=== PATIENT | female | born 1955 | race American Indian/Alaskan Native ===

== ENCOUNTER 2021-11-07 01:50 | Inpatient (IN) | payer MEDICAID ==
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
[2021-11-08] MEDS ORDERED: cloNIDine 0.1 MG TAB PO PRN (09:00)
[2021-11-08] MEDS ORDERED: NITROGLYCERIN 0.4 MG TAB SUBL SL SCH (09:00)
[2021-11-08] MEDS ORDERED: NON-FORMULARY EACH (Loratadine [Allergy Relief] 10 MG Tablet) PO SCH (10:00)
[2021-11-08] MEDS ORDERED: NON-FORMULARY EACH (Ziprasidone Hcl [Geodon] 80 MG Capsule) PO SCH (10:00)
[2021-11-08] MEDS: MAGNESIUM OXIDE 400 MG TAB PO SCH ×2 (10:16→21:45)
[2021-11-08] MEDS: FAMOTIDINE 20 MG TAB PO SCH ×2 (10:16→21:45)
[2021-11-08] MEDS: LOSARTAN 50 MG TAB PO SCH (10:17)
[2021-11-08] MEDS: CETIRIZINE 10 MG TAB PO SCH (10:24)
[2021-11-08] MEDS: ZIPRASIDONE 40 MG CAP PO SCH ×2 (10:24→21:45)
[2021-11-08] MEDS: METOPROLOL SUCCINATE XL 25 MG TAB PO SCH (10:30)
[2021-11-08] MEDS: LORazepam 0.5 MG TAB PO SCH ×2 (13:42→21:45)
[2021-11-08] MEDS: DIVALPROEX DR 250 MG TAB PO SCH ×2 (13:42→21:45)
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
[2021-11-08] MEDS: PRAVASTATIN 20 MG TAB PO SCH (21:45)
[2021-11-08] MEDS ORDERED: traZODone 100 MG TAB PO PRN (22:00)
[2021-11-08] MEDS: INSULIN LISPRO 100 UNIT/ML SUB-Q SCH (23:21)
[2021-11-09 05:54] LABS: Basophils % (Auto) 0.3 % (0.0-1.8); Eosinophils # (Auto) 0.1 K/mm3 (0.0-0.4); Eosinophils % (Auto) 1.9 % (0.0-4.3); Hematocrit 36.3 % (30.3-42.9); Hemoglobin 11.3 gm/dl (10.1-14.3); Lymphocytes # (Auto) 2.3 K/mm3 (1.2-5.4); Lymphocytes % (Auto) 42.9 % (13.4-35.0); Mean Corpuscular HGB Conc 31 % (30-34); Mean Corpuscular Volume 88 fl (79-97); Monocytes # (Auto) 0.6 K/mm3 (0.0-0.8); Monocytes % (Auto) 11.1 % (0.0-7.3); Platelet Count 231 K/mm3 (140-440); Red Blood Count 4.12 M/mm3 (3.65-5.03); Red Cell Distribution Width 14.5 % (13.2-15.2)
[2021-11-09 06:12] LABS: Alanine Aminotransferase 20 units/L (7-56); Albumin 3.3 g/dL (3.9-5); Blood Urea Nitrogen 19 mg/dL (7-17); Calcium 8.6 mg/dL (8.4-10.2); HDL Cholesterol 45 mg/dL (40-59); Hemolysis Index 2; LDL Cholesterol,Direct 101 mg/dL (50-130)
[2021-11-09 06:13] LABS: BUN/Creatinine Ratio 27
--- NOTE | 2021-11-09 10:27 | Progress Note ---
Subjective Date of service: 11/09/21 Subjective Comment: 11/09: The patient was seen this morning. She continues to present with delusions, she was pointing at a staff stating " that right there is trying to hurt me." She endorses having auditory and visual hallucinations " voices telling me to pee allover, I see dark hair." Increase Su Henley to 500mg BID. REVIEW OF SYSTEMS MENTAL STATUS EXAMINATION Diagnoses: Schizophrenia Treatment Plan: Patient admitted for inpatient psychiatric evaluation, medication adjustment and close monitoring The patient's behavior, mood, sleep and appetite will be closely monitored. Patient enrolled in individual and group therapeutic sessions and encouraged to attend. Patient provided with a safe and structured environment. Patient's physical health needs will be addressed by the Hospitalist. Hospitalist Consulted Labs including CBC, CMP, Lipid profile and Hemoglobin A1C levels ordered for baseline reference Social Assessment will be completed and the Conservation Or Heritage Architect will work with patient and family to ensure a suitable and safe disposition Medication adjustment will be made as clinically indicated Continue home meds Usual Wellness Gnosticist/Preservation: - Start Trazodone 50 mg po QHS & 50 mg po QHS PRN between 10 PM & 2 AM for insomnia - Start Melatonin 5 mg po QHS to promote circadian rhythm The patient agreed on the treatment plan, understood the risk, benefit, alternative treatment, potential consequence of no treatment, and gave informed consent. Estimated days: 7 Medications and Allergies Legal Status: Involuntary Medications and Allergies Medications and Allergies Allergies Allergy/AdvReac Type Severity Reaction Status Date / Time codeine Allergy Vomiting Verified 11/08/21 00:41 cholecalciferol (vitamin D3) AdvReac Unknown Verified 11/08/21 00:44 [From Vitamin D3] ciprofloxacin [From Cipro] AdvReac Unknown Verified 11/08/21 00:42 ergocalciferol (vitamin D2) AdvReac Unknown Verified 11/08/21 00:45 [From Vitamin D2] Home Medications Medication Instructions Recorded Confirmed Last Taken Type Divalproex [Su Ingram] 250 mg PO TID 11/08/21 11/08/21 Unknown History Famotidine [Acid-Pep] 20 mg PO BID 11/08/21 11/08/21 Unknown History LORazepam [Ativan] 0.5 mg PO TID 11/08/21 11/08/21 Unknown History Loratadine [Allergy Relief] 10 mg PO DAILY 11/08/21 11/08/21 Unknown History Losartan [Cozaar] 50 mg PO DAILY 11/08/21 11/08/21 Unknown History Magnesium Oxide 400 mg PO BID 11/08/21 11/08/21 Unknown History Metoprolol Succinate [Toprol Xl] 25 mg PO DAILY 11/08/21 11/08/21 Unknown History Nitroglycerin [Nitrostat] 0.4 mg SL PRN 11/08/21 11/08/21 Unknown History Pravastatin [Pravachol] 20 mg PO HS 11/08/21 11/08/21 Unknown History Trazodone HCl 100 mg PO PRN PRN 11/08/21 11/08/21 Unknown History Ziprasidone HCl [Geodon] 80 mg PO BID 11/08/21 11/08/21 Unknown History cloNIDine [Catapres] 0.1 mg PO PRN 11/08/21 11/08/21 Unknown History metFORMIN [Glucophage] 1,000 mg PO BID 11/08/21 11/08/21 Unknown History Active Meds: Active Medications Cetirizine HCl (Cetirizine 10 Mg Tab) 10 mg PO DAILY [facility] Last Admin: 11/08/21 10:24 Dose: 10 mg Clonidine HCl (Clonidine 0.1 Mg Tab) 0.1 mg PO DAILY PRN PRN Reason: SBP > /=160 Divalproex Sodium (Divalproex Dr 250 Mg Tab) 250 mg PO TID [facility] Last Admin: 11/08/21 21:45 Dose: 250 mg Famotidine (Famotidine 20 Mg Tab) 20 mg PO BID [facility] Last Admin: 11/08/21 21:45 Dose: 20 mg Insulin Human Lispro (Insulin Lispro 100 Unit/Ml) 0 unit SUB-Q [facility]; Protocol Last Admin: 11/08/21 23:21 Dose: 4 unit Lorazepam (Lorazepam 0.5 Mg Tab) 0.5 mg PO TID [facility] Last Admin: 11/08/21 21:45 Dose: 0.5 mg Losartan Potassium (Losartan 50 Mg Tab) 50 mg PO DAILY [facility] Last Admin: 11/08/21 10:17 Dose: 50 mg Magnesium Oxide (Magnesium Oxide 400 Mg Tab) 400 mg PO BID [facility] Last Admin: 11/08/21 21:45 Dose: 400 mg Metformin HCl (Metformin 500 Mg Tab) 1,000 mg PO BIDDIAB [facility] Metoprolol Succinate (Metoprolol Succinate Xl 25 Mg Tab) 25 mg PO DAILY [facility] Last Admin: 11/08/21 10:30 Dose: Not Given Nitroglycerin (Nitroglycerin 0.4 Mg Tab Subl) 0.4 mg SL PRN [facility] Pravastatin Sodium (Pravastatin 20 Mg Tab) 20 mg PO HS [facility] Last Admin: 11/08/21 21:45 Dose: 20 mg Trazodone HCl (Trazodone 100 Mg Tab) 100 mg PO QHS PRN PRN Reason: Insomnia Ziprasidone (Ziprasidone 40 Mg Cap) 80 mg PO BID [facility] Last Admin: 11/08/21 21:45 Dose: 80 mg Results - Results Labs/Vitals: Laboratory Last Values WBC 5.3 K/mm3 (4.5-11.0) 11/09/21 05:20 RBC 4.12 M/mm3 (3.65-5.03) 11/09/21 05:20 Hgb 11.3 gm/dl (10.1-14.3) 11/09/21 05:20 Hct 36.3 % (30.3-42.9) 11/09/21 05:20 MCV 88 fl (79-97) 11/09/21 05:20 MCH 27 pg (28-32) L 11/09/21 05:20 MCHC 31 % (30-34) 11/09/21 05:20 RDW 14.5 % (13.2-15.2) 11/09/21 05:20 Plt Count 231 K/mm3 (140-440) 11/09/21 05:20 Lymph % (Auto) 42.9 % (13.4-35.0) H 11/09/21 05:20 Fleming % (Auto) 11.1 % (0.0-7.3) H 11/09/21 05:20 Eos % (Auto) 1.9 % (0.0-4.3) 11/09/21 05:20 Baso % (Auto) 0.3 % (0.0-1.8) 11/09/21 05:20 Lymph # (Auto) 2.3 K/mm3 (1.2-5.4) 11/09/21 05:20 Fleming # (Auto) 0.6 K/mm3 (0.0-0.8) 11/09/21 05:20 Eos # (Auto) 0.1 K/mm3 (0.0-0.4) 11/09/21 05:20 Baso # (Auto) 0.0 K/mm3 (0.0-0.1) 11/09/21 05:20 Seg Neutrophils % 43.8 % (40.0-70.0) 11/09/21 05:20 Seg Neutrophils # 2.3 K/mm3 (1.8-7.7) 11/09/21 05:20 Sodium 138 mmol/L (137-145) 11/09/21 05:20 Potassium 4.4 mmol/L (3.6-5.0) 11/09/21 05:20 Chloride 103.0 mmol/L (98-107) 11/09/21 05:20 Carbon Dioxide 27 mmol/L (22-30) 11/09/21 05:20 Anion Gap 12 mmol/L 11/09/21 05:20 BUN 19 mg/dL (7-17) H 11/09/21 05:20 Creatinine 0.7 mg/dL (0.6-1.2) 11/09/21 05:20 Estimated GFR > 60 ml/min 11/09/21 05:20 BUN/Creatinine Ratio 27 % 11/09/21 05:20 Glucose 230 mg/dL (65-100) H 11/09/21 05:20 POC Glucose 273 mg/dL (70-105) H 11/08/21 20:11 Hemoglobin A1c 6.3 % (4-6) H 11/09/21 05:20 Calcium 8.6 mg/dL (8.4-10.2) 11/09/21 05:20 Magnesium 2.10 mg/dL (1.7-2.3) 11/09/21 05:20 Total Bilirubin 0.20 mg/dL (0.1-1.2) 11/09/21 05:20 AST 18 units/L (5-40) 11/09/21 05:20 ALT 20 units/L (7-56) 11/09/21 05:20 Alkaline Phosphatase 72 units/L (35-129) 11/09/21 05:20 Total Protein 6.5 g/dL (6.3-8.2) 11/09/21 05:20 Albumin 3.3 g/dL (3.9-5) L 11/09/21 05:20 Albumin/Globulin Ratio 1.0 % 11/09/21 05:20 Triglycerides 89 mg/dL (2-149) 11/09/21 05:20 Cholesterol 162 mg/dL (50-199) 11/09/21 05:20 LDL Cholesterol Direct 101 mg/dL (50-130) 11/09/21 05:20 HDL Cholesterol 45 mg/dL (40-59) 11/09/21 05:20 Cholesterol/HDL Ratio 3.60 % 11/09/21 05:20 TSH 1.290 mlU/mL (0.270-4.200) 11/09/21 05:20 Last Vital Signs Temp 97.6 F 11/08/21 22:00 Pulse 63 11/08/21 22:00 Resp 14 11/08/21 22:00 BP 115/74 11/08/21 22:00 Pulse Ox 95 11/08/21 22:00
[2021-11-09] MEDS: MAGNESIUM OXIDE 400 MG TAB PO SCH ×2 (10:28→21:02)
[2021-11-09] MEDS: ZIPRASIDONE 40 MG CAP PO SCH ×2 (10:28→21:02)
[2021-11-09] MEDS: LORazepam 0.5 MG TAB PO SCH ×3 (10:28→21:01)
[2021-11-09] MEDS: CETIRIZINE 10 MG TAB PO SCH (10:28)
[2021-11-09] MEDS: METOPROLOL SUCCINATE XL 25 MG TAB PO SCH (10:28)
[2021-11-09] MEDS: FAMOTIDINE 20 MG TAB PO SCH ×2 (10:28→21:01)
[2021-11-09] MEDS: metFORMIN 500 MG TAB PO SCH ×2 (10:29→16:35)
[2021-11-09] MEDS: LOSARTAN 50 MG TAB PO SCH (10:29)
[2021-11-09] MEDS ORDERED: ZIPRASIDONE MESYLATE 20 MG VIAL IM PRN (11:00)
[2021-11-09] MEDS: INSULIN LISPRO 100 UNIT/ML SUB-Q SCH ×4 (11:06→21:04)
[2021-11-09] MEDS: DIVALPROEX DR 500 MG TAB PO SCH ×2 (11:09→21:02)
[2021-11-09] MEDS: DIVALPROEX DR 250 MG TAB PO SCH (11:16)
--- NOTE | 2021-11-09 15:45 | Progress Note ---
<ERIN MARQUEZ - Last Filed: 11/09/21 15:46> Assessment and Plan - Patient Problems (1) Schizophrenia Current Visit: Yes Status: Acute Plan to address problem: Continue anti-psychotic Redirect patient (2) Noncompliance Current Visit: Yes Status: Acute Plan to address problem: Discussed medication compliance (3) Hypertension Current Visit: Yes Status: Acute Plan to address problem: Monitor blood pressure q shift resume home anti-hypertensive (4) Hyperlipidemia Current Visit: Yes Status: Acute Plan to address problem: continue statin History Interval history: Patient seen in the break room. Patient admits anxiety and and hallucinations. Patient advised to be compliant with her psych medication. Hospitalist Physical - Constitutional Vitals: Temp Pulse Resp BP Pulse Ox 97.9 F 96 H 16 133/81 98 11/09/21 10:00 11/09/21 10:29 11/09/21 06:24 11/09/21 10:29 11/09/21 06:24 General appearance: Present: no acute distress - Respiratory Respiratory: bilateral: CTA - Cardiovascular Rhythm: regular - Integumentary Integumentary: Present: warm - Allied Health Allied health notes reviewed: nursing Results - Labs CBC & Chem 7: 11/09/21 05:20 11/09/21 05:20 Labs: Laboratory Last Values WBC 5.3 K/mm3 (4.5-11.0) 11/09/21 05:20 RBC 4.12 M/mm3 (3.65-5.03) 11/09/21 05:20 Hgb 11.3 gm/dl (10.1-14.3) 11/09/21 05:20 Hct 36.3 % (30.3-42.9) 11/09/21 05:20 MCV 88 fl (79-97) 11/09/21 05:20 MCH 27 pg (28-32) L 11/09/21 05:20 MCHC 31 % (30-34) 11/09/21 05:20 RDW 14.5 % (13.2-15.2) 11/09/21 05:20 Plt Count 231 K/mm3 (140-440) 11/09/21 05:20 Lymph % (Auto) 42.9 % (13.4-35.0) H 11/09/21 05:20 [place] % (Auto) 11.1 % (0.0-7.3) H 11/09/21 05:20 Eos % (Auto) 1.9 % (0.0-4.3) 11/09/21 05:20 Baso % (Auto) 0.3 % (0.0-1.8) 11/09/21 05:20 Lymph # (Auto) 2.3 K/mm3 (1.2-5.4) 11/09/21 05:20 [place] # (Auto) 0.6 K/mm3 (0.0-0.8) 11/09/21 05:20 Eos # (Auto) 0.1 K/mm3 (0.0-0.4) 11/09/21 05:20 Baso # (Auto) 0.0 K/mm3 (0.0-0.1) 11/09/21 05:20 Seg Neutrophils % 43.8 % (40.0-70.0) 11/09/21 05:20 Seg Neutrophils # 2.3 K/mm3 (1.8-7.7) 11/09/21 05:20 Sodium 138 mmol/L (137-145) 11/09/21 05:20 Potassium 4.4 mmol/L (3.6-5.0) 11/09/21 05:20 Chloride 103.0 mmol/L (98-107) 11/09/21 05:20 Carbon Dioxide 27 mmol/L (22-30) 11/09/21 05:20 Anion Gap 12 mmol/L 11/09/21 05:20 BUN 19 mg/dL (7-17) H 11/09/21 05:20 Creatinine 0.7 mg/dL (0.6-1.2) 11/09/21 05:20 Estimated GFR > 60 ml/min 11/09/21 05:20 BUN/Creatinine Ratio 27 % 11/09/21 05:20 Glucose 230 mg/dL (65-100) H 11/09/21 05:20 POC Glucose 138 mg/dL (70-105) H 11/09/21 12:00 Hemoglobin A1c 6.3 % (4-6) H 11/09/21 05:20 Calcium 8.6 mg/dL (8.4-10.2) 11/09/21 05:20 Magnesium 2.10 mg/dL (1.7-2.3) 11/09/21 05:20 Total Bilirubin 0.20 mg/dL (0.1-1.2) 11/09/21 05:20 AST 18 units/L (5-40) 11/09/21 05:20 ALT 20 units/L (7-56) 11/09/21 05:20 Alkaline Phosphatase 72 units/L (35-129) 11/09/21 05:20 Total Protein 6.5 g/dL (6.3-8.2) 11/09/21 05:20 Albumin 3.3 g/dL (3.9-5) L 11/09/21 05:20 Albumin/Globulin Ratio 1.0 % 11/09/21 05:20 Triglycerides 89 mg/dL (2-149) 11/09/21 05:20 Cholesterol 162 mg/dL (50-199) 11/09/21 05:20 LDL Cholesterol Direct 101 mg/dL (50-130) 11/09/21 05:20 HDL Cholesterol 45 mg/dL (40-59) 11/09/21 05:20 Cholesterol/HDL Ratio 3.60 % 11/09/21 05:20 TSH 1.290 mlU/mL (0.270-4.200) 11/09/21 05:20 Garza/IV: Voiding Method Toilet Active Medications - Current Medications Current Medications: Generic Name Dose Route Start Last Admin Trade Name Freq PRN Reason Stop Dose Admin Cetirizine HCl 10 mg 11/08/21 10:00 11/09/21 10:28 Cetirizine 10 Mg Tab PO 10 mg DAILY CHRISTA Administration Clonidine HCl 0.1 mg 11/08/21 09:00 Clonidine 0.1 Mg Tab PO DAILY PRN SBP > /=160 Divalproex Sodium 500 mg 11/09/21 11:00 11/09/21 11:[address] 500 Mg Tab PO 500 mg BID CHRISTA Administration Famotidine 20 mg 11/08/21 10:00 11/09/21 10:28 Famotidine 20 Mg Tab PO 20 mg BID CHRISTA Administration Insulin Human Lispro 0 unit 11/08/21 23:30 11/09/21 13:32 Insulin Lispro 100 Unit/Ml SUB-Q Not Given ACHS CHRISTA Protocol Lorazepam 0.5 mg 11/08/21 14:00 11/09/21 13:37 Lorazepam 0.5 Mg Tab PO 0.5 mg TID CHRISTA Administration Losartan Potassium 50 mg 11/08/21 10:00 11/09/21 10:29 Losartan 50 Mg Tab PO 50 mg DAILY CHRISTA Administration Magnesium Oxide 400 mg 11/08/21 10:00 11/09/21 10:28 Magnesium Oxide 400 Mg Tab PO 400 mg BID CHRISTA Administration Metformin HCl 1,000 mg 11/09/21 08:00 11/09/21 10:29 Metformin 500 Mg Tab PO 1,000 mg BIDDIAB CHRISTA Administration Metoprolol Succinate 25 mg 11/08/21 10:00 11/09/21 10:28 Metoprolol Succinate Xl 25 Mg Tab PO 25 mg DAILY CHRISTA Administration Nitroglycerin 0.4 mg 11/08/21 09:00 Nitroglycerin 0.4 Mg Tab Subl SL PRN CHRISTA Pravastatin Sodium 20 mg 11/08/21 22:00 11/08/21 21:45 Pravastatin 20 Mg Tab PO 20 mg HS CHRISTA Administration Trazodone HCl 100 mg 11/08/21 22:00 Trazodone 100 Mg Tab PO QHS PRN Insomnia Ziprasidone 80 mg 11/08/21 10:00 11/09/21 10:28 Ziprasidone 40 Mg Cap PO 80 mg BID CHRISTA Administration Ziprasidone 20 mg 11/09/21 11:00 Ziprasidone Mesylate 20 Mg Vial IM Q6H PRN Agitation <ANGUS MANNING - Last Filed: 11/09/21 20:12> Assessment and Plan Assessment and plan: I saw and evaluated the patient. I agree with the findings and the plan of care as documented in the Nurse Practitioner's~note, with the following corrections and additions. Hospitalist Physical - Constitutional Vitals: Temp Pulse Resp BP Pulse Ox 97.9 F 96 H 16 133/81 98 11/09/21 10:00 11/09/21 10:29 11/09/21 06:24 11/09/21 10:29 11/09/21 06:24 Results - Labs CBC & Chem 7: 11/09/21 05:20 11/09/21 05:20 Labs: Laboratory Last Values WBC 5.3 K/mm3 (4.5-11.0) 11/09/21 05:20 RBC 4.12 M/mm3 (3.65-5.03) 11/09/21 05:20 Hgb 11.3 gm/dl (10.1-14.3) 11/09/21 05:20 Hct 36.3 % (30.3-42.9) 11/09/21 05:20 MCV 88 fl (79-97) 11/09/21 05:20 MCH 27 pg (28-32) L 11/09/21 05:20 MCHC 31 % (30-34) 11/09/21 05:20 RDW 14.5 % (13.2-15.2) 11/09/21 05:20 Plt Count 231 K/mm3 (140-440) 11/09/21 05:20 Lymph % (Auto) 42.9 % (13.4-35.0) H 11/09/21 05:20 [place] % (Auto) 11.1 % (0.0-7.3) H 11/09/21 05:20 Eos % (Auto) 1.9 % (0.0-4.3) 11/09/21 05:20 Baso % (Auto) 0.3 % (0.0-1.8) 11/09/21 05:20 Lymph # (Auto) 2.3 K/mm3 (1.2-5.4) 11/09/21 05:20 [place] # (Auto) 0.6 K/mm3 (0.0-0.8) 11/09/21 05:20 Eos # (Auto) 0.1 K/mm3 (0.0-0.4) 11/09/21 05:20 Baso # (Auto) 0.0 K/mm3 (0.0-0.1) 11/09/21 05:20 Seg Neutrophils % 43.8 % (40.0-70.0) 11/09/21 05:20 Seg Neutrophils # 2.3 K/mm3 (1.8-7.7) 11/09/21 05:20 Sodium 138 mmol/L (137-145) 11/09/21 05:20 Potassium 4.4 mmol/L (3.6-5.0) 11/09/21 05:20 Chloride 103.0 mmol/L (98-107) 11/09/21 05:20 Carbon Dioxide 27 mmol/L (22-30) 11/09/21 05:20 Anion Gap 12 mmol/L 11/09/21 05:20 BUN 19 mg/dL (7-17) H 11/09/21 05:20 Creatinine 0.7 mg/dL (0.6-1.2) 11/09/21 05:20 Estimated GFR > 60 ml/min 11/09/21 05:20 BUN/Creatinine Ratio 27 % 11/09/21 05:20 Glucose 230 mg/dL (65-100) H 11/09/21 05:20 POC Glucose 103 mg/dL (70-105) 11/09/21 20:04 Hemoglobin A1c 6.3 % (4-6) H 11/09/21 05:20 Calcium 8.6 mg/dL (8.4-10.2) 11/09/21 05:20 Magnesium 2.10 mg/dL (1.7-2.3) 11/09/21 05:20 Total Bilirubin 0.20 mg/dL (0.1-1.2) 11/09/21 05:20 AST 18 units/L (5-40) 11/09/21 05:20 ALT 20 units/L (7-56) 11/09/21 05:20 Alkaline Phosphatase 72 units/L (35-129) 11/09/21 05:20 Total Protein 6.5 g/dL (6.3-8.2) 11/09/21 05:20 Albumin 3.3 g/dL (3.9-5) L 11/09/21 05:20 Albumin/Globulin Ratio 1.0 % 11/09/21 05:20 Triglycerides 89 mg/dL (2-149) 11/09/21 05:20 Cholesterol 162 mg/dL (50-199) 11/09/21 05:20 LDL Cholesterol Direct 101 mg/dL (50-130) 11/09/21 05:20 HDL Cholesterol 45 mg/dL (40-59) 11/09/21 05:20 Cholesterol/HDL Ratio 3.60 % 11/09/21 05:20 TSH 1.290 mlU/mL (0.270-4.200) 11/09/21 05:20 Garza/IV: Voiding Method Toilet Active Medications - Current Medications Current Medications: Generic Name Dose Route Start Last Admin Trade Name Freq PRN Reason Stop Dose Admin Cetirizine HCl 10 mg 11/08/21 10:00 11/09/21 10:28 Cetirizine 10 Mg Tab PO 10 mg DAILY CHRISTA Administration Clonidine HCl 0.1 mg 11/08/21 09:00 Clonidine 0.1 Mg Tab PO DAILY PRN SBP > /=160 Divalproex Sodium 500 mg 11/09/21 11:00 11/09/21 11:[address] 500 Mg Tab PO 500 mg BID CHRISTA Administration Famotidine 20 mg 11/08/21 10:00 11/09/21 10:28 Famotidine 20 Mg Tab PO 20 mg BID CHRISTA Administration Insulin Human Lispro 0 unit 11/08/21 23:30 11/09/21 16:35 Insulin Lispro 100 Unit/Ml SUB-Q 2 unit ACHS CHRISTA Administration Protocol Lorazepam 0.5 mg 11/08/21 14:00 11/09/21 13:37 Lorazepam 0.5 Mg Tab PO 0.5 mg TID CHRISTA Administration Losartan Potassium 50 mg 11/08/21 10:00 11/09/21 10:29 Losartan 50 Mg Tab PO 50 mg DAILY CHRISTA Administration Magnesium Oxide 400 mg 11/08/21 10:00 11/09/21 10:28 Magnesium Oxide 400 Mg Tab PO 400 mg BID CHRISTA Administration Metformin HCl 1,000 mg 11/09/21 08:00 11/09/21 16:35 Metformin 500 Mg Tab PO 1,000 mg BIDDIAB CHRISTA Administration Metoprolol Succinate 25 mg 11/08/21 10:00 11/09/21 10:28 Metoprolol Succinate Xl 25 Mg Tab PO 25 mg DAILY CHRISTA Administration Nitroglycerin 0.4 mg 11/08/21 09:00 Nitroglycerin 0.4 Mg Tab Subl SL PRN CHRISTA Pravastatin Sodium 20 mg 11/08/21 22:00 11/08/21 21:45 Pravastatin 20 Mg Tab PO 20 mg HS CHRISTA Administration Trazodone HCl 100 mg 11/08/21 22:00 Trazodone 100 Mg Tab PO QHS PRN Insomnia Ziprasidone 80 mg 11/08/21 10:00 11/09/21 10:28 Ziprasidone 40 Mg Cap PO 80 mg BID CHRISTA Administration Ziprasidone 20 mg 11/09/21 11:00 Ziprasidone Mesylate 20 Mg Vial IM Q6H PRN Agitation
[2021-11-09] MEDS: PRAVASTATIN 20 MG TAB PO SCH (21:02)
--- NOTE | 2021-11-10 08:26 | Progress Note ---
<LENIN REEVES - Last Filed: 11/10/21 11:27> Assessment and Plan Total Time Spent with Patient (Minutes): 37 - Patient Problems (1) DM2 (diabetes mellitus, type 2) Current Visit: Yes Status: Acute Qualifiers: Diabetes mellitus [employer] insulin use: without jail use Plan to address problem: POC BG monitoring Continue home dose metformin On Consistent carbs (with low sodium)diet (2) Hypertension Current Visit: Yes Status: Acute Plan to address problem: Monitor BP per protocol On Losartan and metoprolol On Consistent carb with low sodium diet (3) Hyperlipidemia Current Visit: Yes Status: Acute Plan to address problem: Continue statin (4) Schizophrenia Current Visit: Yes Status: Acute Plan to address problem: Continue anti-psychotic meds mgmt per primary team History Interval history: 66 year old female with history of schizophrenia who was admitted for aggressive behavior. No overnight events reported. Pt is seen this morning in rec room sitting at table. Denies SI/HI, CP, SOB, MACKENZIE. She has no complaints at this time Hospitalist Physical - Constitutional Vitals: Temp Pulse Resp BP Pulse Ox 97.8 F 70 17 128/64 97 11/09/21 22:00 11/09/21 22:00 11/09/21 22:00 11/09/21 22:00 11/09/21 22:00 General appearance: Present: no acute distress - EENT ENT: hearing intact, clear oral mucosa, other (no dentition, not wearing dentures) - Neck Neck: Present: supple, normal ROM - Respiratory Respiratory effort: normal Respiratory: bilateral: CTA - Cardiovascular Rhythm: regular Heart Sounds: Present: S1 & S2. Absent: systolic murmur, diastolic murmur, rub, click - Extremities Extremities: pulses intact, No edema Peripheral Pulses: within normal limits - Abdominal General gastrointestinal: soft, non-tender, non-distended, normal bowel sounds - Integumentary Integumentary: Present: clear, warm, dry - Psychiatric Psychiatric: cooperative, other (calm ) - Neurologic Neurologic: CNII-XII intact Results - Labs CBC & Chem 7: 11/09/21 05:20 11/09/21 05:20 Labs: Laboratory Last Values WBC 5.3 K/mm3 (4.5-11.0) 11/09/21 05:20 RBC 4.12 M/mm3 (3.65-5.03) 11/09/21 05:20 Hgb 11.3 gm/dl (10.1-14.3) 11/09/21 05:20 Hct 36.3 % (30.3-42.9) 11/09/21 05:20 MCV 88 fl (79-97) 11/09/21 05:20 MCH 27 pg (28-32) L 11/09/21 05:20 MCHC 31 % (30-34) 11/09/21 05:20 RDW 14.5 % (13.2-15.2) 11/09/21 05:20 Plt Count 231 K/mm3 (140-440) 11/09/21 05:20 Lymph % (Auto) 42.9 % (13.4-35.0) H 11/09/21 05:20 [place] % (Auto) 11.1 % (0.0-7.3) H 11/09/21 05:20 Eos % (Auto) 1.9 % (0.0-4.3) 11/09/21 05:20 Baso % (Auto) 0.3 % (0.0-1.8) 11/09/21 05:20 Lymph # (Auto) 2.3 K/mm3 (1.2-5.4) 11/09/21 05:20 [place] # (Auto) 0.6 K/mm3 (0.0-0.8) 11/09/21 05:20 Eos # (Auto) 0.1 K/mm3 (0.0-0.4) 11/09/21 05:20 Baso # (Auto) 0.0 K/mm3 (0.0-0.1) 11/09/21 05:20 Seg Neutrophils % 43.8 % (40.0-70.0) 11/09/21 05:20 Seg Neutrophils # 2.3 K/mm3 (1.8-7.7) 11/09/21 05:20 Sodium 138 mmol/L (137-145) 11/09/21 05:20 Potassium 4.4 mmol/L (3.6-5.0) 11/09/21 05:20 Chloride 103.0 mmol/L (98-107) 11/09/21 05:20 Carbon Dioxide 27 mmol/L (22-30) 11/09/21 05:20 Anion Gap 12 mmol/L 11/09/21 05:20 BUN 19 mg/dL (7-17) H 11/09/21 05:20 Creatinine 0.7 mg/dL (0.6-1.2) 11/09/21 05:20 Estimated GFR > 60 ml/min 11/09/21 05:20 BUN/Creatinine Ratio 27 % 11/09/21 05:20 Glucose 230 mg/dL (65-100) H 11/09/21 05:20 POC Glucose 131 mg/dL (70-105) H 11/10/21 06:26 Hemoglobin A1c 6.3 % (4-6) H 11/09/21 05:20 Calcium 8.6 mg/dL (8.4-10.2) 11/09/21 05:20 Magnesium 2.10 mg/dL (1.7-2.3) 11/09/21 05:20 Total Bilirubin 0.20 mg/dL (0.1-1.2) 11/09/21 05:20 AST 18 units/L (5-40) 11/09/21 05:20 ALT 20 units/L (7-56) 11/09/21 05:20 Alkaline Phosphatase 72 units/L (35-129) 11/09/21 05:20 Total Protein 6.5 g/dL (6.3-8.2) 11/09/21 05:20 Albumin 3.3 g/dL (3.9-5) L 11/09/21 05:20 Albumin/Globulin Ratio 1.0 % 11/09/21 05:20 Triglycerides 89 mg/dL (2-149) 11/09/21 05:20 Cholesterol 162 mg/dL (50-199) 11/09/21 05:20 LDL Cholesterol Direct 101 mg/dL (50-130) 11/09/21 05:20 HDL Cholesterol 45 mg/dL (40-59) 11/09/21 05:20 Cholesterol/HDL Ratio 3.60 % 11/09/21 05:20 TSH 1.290 mlU/mL (0.270-4.200) 11/09/21 05:20 Garza/IV: Voiding Method Toilet Active Medications - Current Medications Current Medications: Generic Name Dose Route Start Last Admin Trade Name Freq PRN Reason Stop Dose Admin Cetirizine HCl 10 mg 11/08/21 10:00 11/09/21 10:28 Cetirizine 10 Mg Tab PO 10 mg DAILY CHRISTA Administration Clonidine HCl 0.1 mg 11/08/21 09:00 Clonidine 0.1 Mg Tab PO DAILY PRN SBP > /=160 Divalproex Sodium 500 mg 11/09/21 11:00 11/09/21 21:[address] 500 Mg Tab PO 500 mg BID CHRISTA Administration Famotidine 20 mg 11/08/21 10:00 11/09/21 21:01 Famotidine 20 Mg Tab PO 20 mg BID CHRISTA Administration Insulin Human Lispro 0 unit 11/08/21 23:30 11/09/21 21:04 Insulin Lispro 100 Unit/Ml SUB-Q Not Given ACHS [facility] Protocol Lorazepam 0.5 mg 11/08/21 14:00 11/09/21 21:01 Lorazepam 0.5 Mg Tab PO 0.5 mg TID CHRISTA Administration Losartan Potassium 50 mg 11/08/21 10:00 11/09/21 10:29 Losartan 50 Mg Tab PO 50 mg DAILY CHRISTA Administration Magnesium Oxide 400 mg 11/08/21 10:00 11/09/21 21:02 Magnesium Oxide 400 Mg Tab PO 400 mg BID CHRISTA Administration Metformin HCl 1,000 mg 11/09/21 08:00 11/09/21 16:35 Metformin 500 Mg Tab PO 1,000 mg BIDDIAB CHRISTA Administration Metoprolol Succinate 25 mg 11/08/21 10:00 11/09/21 10:28 Metoprolol Succinate Xl 25 Mg Tab PO 25 mg DAILY CHRISTA Administration Nitroglycerin 0.4 mg 11/08/21 09:00 Nitroglycerin 0.4 Mg Tab Subl SL PRN CHRISTA Pravastatin Sodium 20 mg 11/08/21 22:00 11/09/21 21:02 Pravastatin 20 Mg Tab PO 20 mg HS CHRISTA Administration Trazodone HCl 100 mg 11/08/21 22:00 Trazodone 100 Mg Tab PO QHS PRN Insomnia Ziprasidone 80 mg 11/08/21 10:00 11/09/21 21:02 Ziprasidone 40 Mg Cap PO 80 mg BID CHRISTA Administration Ziprasidone 20 mg 11/09/21 11:00 Ziprasidone Mesylate 20 Mg Vial IM Q6H PRN Agitation Nutrition/Malnutrition Assess - Malnutrition Assessment Minimum of two criteria: No <OKEH,ANGUS E - Last Filed: 11/10/21 16:36> Assessment and Plan Assessment and plan: I saw and evaluated the patient. I agree with the findings and the plan of care as documented in the Nurse Practitioner's~note, with the following corrections and additions. Hospitalist Physical - Constitutional Vitals: Temp Pulse Resp BP Pulse Ox 97.4 F L 60 16 134/70 97 11/10/21 08:06 11/10/21 08:06 11/10/21 08:06 11/10/21 08:06 11/10/21 08:06 Results - Labs CBC & Chem 7: 11/09/21 05:20 11/09/21 05:20 Labs: Laboratory Last Values WBC 5.3 K/mm3 (4.5-11.0) 11/09/21 05:20 RBC 4.12 M/mm3 (3.65-5.03) 11/09/21 05:20 Hgb 11.3 gm/dl (10.1-14.3) 11/09/21 05:20 Hct 36.3 % (30.3-42.9) 11/09/21 05:20 MCV 88 fl (79-97) 11/09/21 05:20 MCH 27 pg (28-32) L 11/09/21 05:20 MCHC 31 % (30-34) 11/09/21 05:20 RDW 14.5 % (13.2-15.2) 11/09/21 05:20 Plt Count 231 K/mm3 (140-440) 11/09/21 05:20 Lymph % (Auto) 42.9 % (13.4-35.0) H 11/09/21 05:20 [place] % (Auto) 11.1 % (0.0-7.3) H 11/09/21 05:20 Eos % (Auto) 1.9 % (0.0-4.3) 11/09/21 05:20 Baso % (Auto) 0.3 % (0.0-1.8) 11/09/21 05:20 Lymph # (Auto) 2.3 K/mm3 (1.2-5.4) 11/09/21 05:20 [place] # (Auto) 0.6 K/mm3 (0.0-0.8) 11/09/21 05:20 Eos # (Auto) 0.1 K/mm3 (0.0-0.4) 11/09/21 05:20 Baso # (Auto) 0.0 K/mm3 (0.0-0.1) 11/09/21 05:20 Seg Neutrophils % 43.8 % (40.0-70.0) 11/09/21 05:20 Seg Neutrophils # 2.3 K/mm3 (1.8-7.7) 11/09/21 05:20 Sodium 138 mmol/L (137-145) 11/09/21 05:20 Potassium 4.4 mmol/L (3.6-5.0) 11/09/21 05:20 Chloride 103.0 mmol/L (98-107) 11/09/21 05:20 Carbon Dioxide 27 mmol/L (22-30) 11/09/21 05:20 Anion Gap 12 mmol/L 11/09/21 05:20 BUN 19 mg/dL (7-17) H 11/09/21 05:20 Creatinine 0.7 mg/dL (0.6-1.2) 11/09/21 05:20 Estimated GFR > 60 ml/min 11/09/21 05:20 BUN/Creatinine Ratio 27 % 11/09/21 05:20 Glucose 230 mg/dL (65-100) H 11/09/21 05:20 POC Glucose 165 mg/dL (70-105) H 11/10/21 16:27 Hemoglobin A1c 6.3 % (4-6) H 11/09/21 05:20 Calcium 8.6 mg/dL (8.4-10.2) 11/09/21 05:20 Magnesium 2.10 mg/dL (1.7-2.3) 11/09/21 05:20 Total Bilirubin 0.20 mg/dL (0.1-1.2) 11/09/21 05:20 AST 18 units/L (5-40) 11/09/21 05:20 ALT 20 units/L (7-56) 11/09/21 05:20 Alkaline Phosphatase 72 units/L (35-129) 11/09/21 05:20 Total Protein 6.5 g/dL (6.3-8.2) 11/09/21 05:20 Albumin 3.3 g/dL (3.9-5) L 11/09/21 05:20 Albumin/Globulin Ratio 1.0 % 11/09/21 05:20 Triglycerides 89 mg/dL (2-149) 11/09/21 05:20 Cholesterol 162 mg/dL (50-199) 11/09/21 05:20 LDL Cholesterol Direct 101 mg/dL (50-130) 11/09/21 05:20 HDL Cholesterol 45 mg/dL (40-59) 11/09/21 05:20 Cholesterol/HDL Ratio 3.60 % 11/09/21 05:20 TSH 1.290 mlU/mL (0.270-4.200) 11/09/21 05:20 Garza/IV: Voiding Method Toilet Active Medications - Current Medications Current Medications: Generic Name Dose Route Start Last Admin Trade Name Freq PRN Reason Stop Dose Admin Cetirizine HCl 10 mg 11/08/21 10:00 11/10/21 09:55 Cetirizine 10 Mg Tab PO 10 mg DAILY CHRISTA Administration Clonidine HCl 0.1 mg 11/08/21 09:00 Clonidine 0.1 Mg Tab PO DAILY PRN SBP > /=160 Divalproex Sodium 500 mg 11/09/21 11:00 11/10/21 09:[address] 500 Mg Tab PO 500 mg BID CHRISTA Administration Famotidine 20 mg 11/08/21 10:00 11/10/21 09:55 Famotidine 20 Mg Tab PO 20 mg BID CHRISTA Administration Insulin Human Lispro 0 unit 11/08/21 23:30 11/10/21 11:41 Insulin Lispro 100 Unit/Ml SUB-Q 3 unit ACHS CHRISTA Administration Protocol Lorazepam 0.5 mg 11/08/21 14:00 11/10/21 13:04 Lorazepam 0.5 Mg Tab PO 0.5 mg TID CHRISTA Administration Losartan Potassium 50 mg 11/08/21 10:00 11/10/21 09:55 Losartan 50 Mg Tab PO 50 mg DAILY CHRISTA Administration Magnesium Oxide 400 mg 11/08/21 10:00 11/10/21 09:55 Magnesium Oxide 400 Mg Tab PO 400 mg BID CHRISTA Administration Metformin HCl 1,000 mg 11/09/21 08:00 11/10/21 10:05 Metformin 500 Mg Tab PO 1,000 mg BIDDIAB CHRISTA Administration Metoprolol Succinate 25 mg 11/08/21 10:00 11/10/21 09:55 Metoprolol Succinate Xl 25 Mg Tab PO 25 mg DAILY CHRISTA Administration Nitroglycerin 0.4 mg 11/08/21 09:00 Nitroglycerin 0.4 Mg Tab Subl SL PRN CHRISTA Pravastatin Sodium 20 mg 11/08/21 22:00 11/09/21 21:02 Pravastatin 20 Mg Tab PO 20 mg HS CHRISTA Administration Trazodone HCl 100 mg 11/08/21 22:00 Trazodone 100 Mg Tab PO QHS PRN Insomnia Ziprasidone 80 mg 11/08/21 10:00 11/10/21 09:55 Ziprasidone 40 Mg Cap PO 80 mg BID CHRISTA Administration Ziprasidone 20 mg 11/09/21 11:00 Ziprasidone Mesylate 20 Mg Vial IM Q6H PRN Agitation
--- NOTE | 2021-11-10 08:48 | Progress Note ---
Subjective Date of service: 11/10/21 Subjective Comment: 11/10: The patient was seen today. The patient was seen resting quietly in bed. Per nurse, the patient had an uneventful night. No changes made today. REVIEW OF SYSTEMS MENTAL STATUS EXAMINATION Diagnoses: Schizophrenia Treatment Plan: Patient admitted for inpatient psychiatric evaluation, medication adjustment and close monitoring The patient's behavior, mood, sleep and appetite will be closely monitored. Patient enrolled in individual and group therapeutic sessions and encouraged to attend. Patient provided with a safe and structured environment. Patient's physical health needs will be addressed by the Hospitalist. Hospitalist Consulted Labs including CBC, CMP, Lipid profile and Hemoglobin A1C levels ordered for baseline reference Social Assessment will be completed and the Turbine Operator will work with patient and family to ensure a suitable and safe disposition Medication adjustment will be made as clinically indicated Continue home meds Usual Wellness Gnosticist/Preservation: - Start Trazodone 50 mg po QHS & 50 mg po QHS PRN between 10 PM & 2 AM for insomnia - Start Melatonin 5 mg po QHS to promote circadian rhythm The patient agreed on the treatment plan, understood the risk, benefit, alternative treatment, potential consequence of no treatment, and gave informed consent. Estimated days: 7 Medications and Allergies Allergies Allergy/AdvReac Type Severity Reaction Status Date / Time codeine Allergy Vomiting Verified 11/08/21 00:41 cholecalciferol (vitamin D3) AdvReac Unknown Verified 11/08/21 00:44 [From Vitamin D3] ciprofloxacin [From Cipro] AdvReac Unknown Verified 11/08/21 00:42 ergocalciferol (vitamin D2) AdvReac Unknown Verified 11/08/21 00:45 [From Vitamin D2] Home Medications Medication Instructions Recorded Confirmed Last Taken Type Divalproex Dr [Depakote Dr] 250 mg PO TID 11/08/21 11/08/21 Unknown History Famotidine [Acid-Pep] 20 mg PO BID 11/08/21 11/08/21 Unknown History LORazepam [Ativan] 0.5 mg PO TID 11/08/21 11/08/21 Unknown History Loratadine [Allergy Relief] 10 mg PO DAILY 11/08/21 11/08/21 Unknown History Losartan [Cozaar] 50 mg PO DAILY 11/08/21 11/08/21 Unknown History Magnesium Oxide 400 mg PO BID 11/08/21 11/08/21 Unknown History Metoprolol Succinate [Toprol Xl] 25 mg PO DAILY 11/08/21 11/08/21 Unknown History Nitroglycerin [Nitrostat] 0.4 mg SL PRN 11/08/21 11/08/21 Unknown History Pravastatin [Pravachol] 20 mg PO HS 11/08/21 11/08/21 Unknown History Trazodone HCl 100 mg PO PRN PRN 11/08/21 11/08/21 Unknown History Ziprasidone HCl [Geodon] 80 mg PO BID 11/08/21 11/08/21 Unknown History cloNIDine [Catapres] 0.1 mg PO PRN 11/08/21 11/08/21 Unknown History metFORMIN [Glucophage] 1,000 mg PO BID 11/08/21 11/08/21 Unknown History Active Meds: Active Medications Cetirizine HCl (Cetirizine 10 Mg Tab) 10 mg PO DAILY [facility] Last Admin: 11/09/21 10:28 Dose: 10 mg Clonidine HCl (Clonidine 0.1 Mg Tab) 0.1 mg PO DAILY PRN PRN Reason: SBP > /=160 Divalproex Sodium (Divalproex Dr 500 Mg Tab) 500 mg PO BID [facility] Last Admin: 11/09/21 21:02 Dose: 500 mg Famotidine (Famotidine 20 Mg Tab) 20 mg PO BID [facility] Last Admin: 11/09/21 21:01 Dose: 20 mg Insulin Human Lispro (Insulin Lispro 100 Unit/Ml) 0 unit SUB-Q ACHS [facility]; Protocol Last Admin: 11/09/21 21:04 Dose: Not Given Lorazepam (Lorazepam 0.5 Mg Tab) 0.5 mg PO TID [facility] Last Admin: 11/09/21 21:01 Dose: 0.5 mg Losartan Potassium (Losartan 50 Mg Tab) 50 mg PO DAILY [facility] Last Admin: 11/09/21 10:29 Dose: 50 mg Magnesium Oxide (Magnesium Oxide 400 Mg Tab) 400 mg PO BID [facility] Last Admin: 11/09/21 21:02 Dose: 400 mg Metformin HCl (Metformin 500 Mg Tab) 1,000 mg PO BIDDIAB [facility] Last Admin: 11/09/21 16:35 Dose: 1,000 mg Metoprolol Succinate (Metoprolol Succinate Xl 25 Mg Tab) 25 mg PO DAILY [facility] Last Admin: 11/09/21 10:28 Dose: 25 mg Nitroglycerin (Nitroglycerin 0.4 Mg Tab Subl) 0.4 mg SL PRN CHRISTA Pravastatin Sodium (Pravastatin 20 Mg Tab) 20 mg PO HS [facility] Last Admin: 11/09/21 21:02 Dose: 20 mg Trazodone HCl (Trazodone 100 Mg Tab) 100 mg PO QHS PRN PRN Reason: Insomnia Ziprasidone (Ziprasidone 40 Mg Cap) 80 mg PO BID [facility] Last Admin: 11/09/21 21:02 Dose: 80 mg Ziprasidone (Ziprasidone Mesylate 20 Mg Vial) 20 mg IM Q6H PRN PRN Reason: Agitation Results - Results Labs/Vitals: Laboratory Last Values WBC 5.3 K/mm3 (4.5-11.0) 11/09/21 05:20 RBC 4.12 M/mm3 (3.65-5.03) 11/09/21 05:20 Hgb 11.3 gm/dl (10.1-14.3) 11/09/21 05:20 Hct 36.3 % (30.3-42.9) 11/09/21 05:20 MCV 88 fl (79-97) 11/09/21 05:20 MCH 27 pg (28-32) L 11/09/21 05:20 MCHC 31 % (30-34) 11/09/21 05:20 RDW 14.5 % (13.2-15.2) 11/09/21 05:20 Plt Count 231 K/mm3 (140-440) 11/09/21 05:20 Lymph % (Auto) 42.9 % (13.4-35.0) H 11/09/21 05:20 [place] % (Auto) 11.1 % (0.0-7.3) H 11/09/21 05:20 Eos % (Auto) 1.9 % (0.0-4.3) 11/09/21 05:20 Baso % (Auto) 0.3 % (0.0-1.8) 11/09/21 05:20 Lymph # (Auto) 2.3 K/mm3 (1.2-5.4) 11/09/21 05:20 [place] # (Auto) 0.6 K/mm3 (0.0-0.8) 11/09/21 05:20 Eos # (Auto) 0.1 K/mm3 (0.0-0.4) 11/09/21 05:20 Baso # (Auto) 0.0 K/mm3 (0.0-0.1) 11/09/21 05:20 Seg Neutrophils % 43.8 % (40.0-70.0) 11/09/21 05:20 Seg Neutrophils # 2.3 K/mm3 (1.8-7.7) 11/09/21 05:20 Sodium 138 mmol/L (137-145) 11/09/21 05:20 Potassium 4.4 mmol/L (3.6-5.0) 11/09/21 05:20 Chloride 103.0 mmol/L (98-107) 11/09/21 05:20 Carbon Dioxide 27 mmol/L (22-30) 11/09/21 05:20 Anion Gap 12 mmol/L 11/09/21 05:20 BUN 19 mg/dL (7-17) H 11/09/21 05:20 Creatinine 0.7 mg/dL (0.6-1.2) 11/09/21 05:20 Estimated GFR > 60 ml/min 11/09/21 05:20 BUN/Creatinine Ratio 27 % 11/09/21 05:20 Glucose 230 mg/dL (65-100) H 11/09/21 05:20 POC Glucose 131 mg/dL (70-105) H 11/10/21 06:26 Hemoglobin A1c 6.3 % (4-6) H 11/09/21 05:20 Calcium 8.6 mg/dL (8.4-10.2) 11/09/21 05:20 Magnesium 2.10 mg/dL (1.7-2.3) 11/09/21 05:20 Total Bilirubin 0.20 mg/dL (0.1-1.2) 11/09/21 05:20 AST 18 units/L (5-40) 11/09/21 05:20 ALT 20 units/L (7-56) 11/09/21 05:20 Alkaline Phosphatase 72 units/L (35-129) 11/09/21 05:20 Total Protein 6.5 g/dL (6.3-8.2) 11/09/21 05:20 Albumin 3.3 g/dL (3.9-5) L 11/09/21 05:20 Albumin/Globulin Ratio 1.0 % 11/09/21 05:20 Triglycerides 89 mg/dL (2-149) 11/09/21 05:20 Cholesterol 162 mg/dL (50-199) 11/09/21 05:20 LDL Cholesterol Direct 101 mg/dL (50-130) 11/09/21 05:20 HDL Cholesterol 45 mg/dL (40-59) 11/09/21 05:20 Cholesterol/HDL Ratio 3.60 % 11/09/21 05:20 TSH 1.290 mlU/mL (0.270-4.200) 11/09/21 05:20 Last Vital Signs Temp 97.8 F 11/09/21 22:00 Pulse 70 11/09/21 22:00 Resp 17 11/09/21 22:00 BP 128/64 11/09/21 22:00 Pulse Ox 97 11/09/21 22:00
[2021-11-10] MEDS: METOPROLOL SUCCINATE XL 25 MG TAB PO SCH (09:55)
[2021-11-10] MEDS: DIVALPROEX DR 500 MG TAB PO SCH ×2 (09:55→21:32)
[2021-11-10] MEDS: MAGNESIUM OXIDE 400 MG TAB PO SCH ×2 (09:55→21:33)
[2021-11-10] MEDS: CETIRIZINE 10 MG TAB PO SCH (09:55)
[2021-11-10] MEDS: FAMOTIDINE 20 MG TAB PO SCH ×2 (09:55→21:33)
[2021-11-10] MEDS: LOSARTAN 50 MG TAB PO SCH (09:55)
[2021-11-10] MEDS: ZIPRASIDONE 40 MG CAP PO SCH ×2 (09:55→21:32)
[2021-11-10] MEDS: LORazepam 0.5 MG TAB PO SCH ×3 (09:55→20:08)
[2021-11-10] MEDS: INSULIN LISPRO 100 UNIT/ML SUB-Q SCH ×4 (09:56→21:32)
[2021-11-10] MEDS: metFORMIN 500 MG TAB PO SCH ×2 (10:05→16:44)
[2021-11-10] MEDS: PRAVASTATIN 20 MG TAB PO SCH (21:34)
[2021-11-11] MEDS: INSULIN LISPRO 100 UNIT/ML SUB-Q SCH ×4 (07:55→21:19)
[2021-11-11] MEDS: LORazepam 0.5 MG TAB PO SCH ×3 (07:57→20:12)
[2021-11-11] MEDS: metFORMIN 500 MG TAB PO SCH ×2 (07:57→16:41)
[2021-11-11] MEDS: MAGNESIUM OXIDE 400 MG TAB PO SCH ×2 (09:09→21:19)
[2021-11-11] MEDS: DIVALPROEX DR 500 MG TAB PO SCH ×2 (09:09→21:18)
[2021-11-11] MEDS: ZIPRASIDONE 40 MG CAP PO SCH ×2 (09:09→21:19)
[2021-11-11] MEDS: FAMOTIDINE 20 MG TAB PO SCH ×2 (09:09→21:19)
[2021-11-11] MEDS: METOPROLOL SUCCINATE XL 25 MG TAB PO SCH (09:10)
[2021-11-11] MEDS: CETIRIZINE 10 MG TAB PO SCH (09:10)
[2021-11-11] MEDS: LOSARTAN 50 MG TAB PO SCH (09:11)
--- NOTE | 2021-11-11 10:07 | Progress Note ---
Subjective Date of service: 11/11/21 Principal diagnosis: schizophrenia Subjective Comment: The patient was seen today. She says she's doing okay. The patient says she slept well last nigh. She says she doesn't want to go back to her longterm because people hate her there and does things to her. The patient also hallucinates sometimes and says she sees "other people hands instead of her own." [place] continue to treat and monitor the patient. 11/10: The patient was seen today. The patient was seen resting quietly in bed. Per nurse, the patient had an uneventful night. No changes made today. REVIEW OF SYSTEMS Constitutional: Negative for weight loss ENT: Negative for stridor Respiratory: Negative for cough or hemoptysis All other systems reviewed and are negative MENTAL STATUS EXAMINATION General Appearance and Behavior: Age appropriate, wearing appropriate clothes, cooperative, polite with questioning, good eye contact Cooperation: cooperative Psychomotor Behavior: Psychomotor normal Mood: Okay Affect and affective range: congruent with stated mood Thought Process: Goal directed Thought Content: Reality oriented Speech: Normal volume, Regular rate and rhythm Suicidal Ideation: Denies Homicidal Ideation: Denies Hallucination: Sometimes Delusions: None elicited Impulse Control: Limited Insight and Judgment: Limited Memory: Intact Attention:attentive Orientation: Alert and oriented Assessment Schizophrenia Treatment Plan: Patient admitted for inpatient psychiatric evaluation, medication adjustment and close monitoring The patient's behavior, mood, sleep and appetite will be closely monitored. Patient enrolled in individual and group therapeutic sessions and encouraged to attend. Patient provided with a safe and structured environment. Patient's physical health needs will be addressed by the Hospitalist. Hospitalist Consulted Labs including CBC, CMP, Lipid profile and Hemoglobin A1C levels ordered for baseline reference Social Assessment will be completed and the Transmission Mechanic will work with patient and family to ensure a suitable and safe disposition Medication adjustment will be made as clinically indicated Continue home meds Usual Wellness Anabaptist/Preservation: - Start Trazodone 50 mg po QHS & 50 mg po QHS PRN between 10 PM & 2 AM for insomnia - Start Melatonin 5 mg po QHS to promote circadian rhythm The patient agreed on the treatment plan, understood the risk, benefit, alternative treatment, potential consequence of no treatment, and gave informed consent. Estimated days: [address] Silva Medications and Allergies Allergies Allergy/AdvReac Type Severity Reaction Status Date / Time codeine Allergy Vomiting Verified 11/08/21 00:41 cholecalciferol (vitamin D3) AdvReac Unknown Verified 11/08/21 00:44 [From Vitamin D3] ciprofloxacin [From Cipro] AdvReac Unknown Verified 11/08/21 00:42 ergocalciferol (vitamin D2) AdvReac Unknown Verified 11/08/21 00:45 [From Vitamin D2] Home Medications Medication Instructions Recorded Confirmed Last Taken Type Divalproex Dr [Depakote Dr] 250 mg PO TID 11/08/21 11/08/21 Unknown History Famotidine [Acid-Pep] 20 mg PO BID 11/08/21 11/08/21 Unknown History LORazepam [Ativan] 0.5 mg PO TID 11/08/21 11/08/21 Unknown History Loratadine [Allergy Relief] 10 mg PO DAILY 11/08/21 11/08/21 Unknown History Losartan [Cozaar] 50 mg PO DAILY 11/08/21 11/08/21 Unknown History Magnesium Oxide 400 mg PO BID 11/08/21 11/08/21 Unknown History Metoprolol Succinate [Toprol Xl] 25 mg PO DAILY 11/08/21 11/08/21 Unknown History Nitroglycerin [Nitrostat] 0.4 mg SL PRN 11/08/21 11/08/21 Unknown History Pravastatin [Pravachol] 20 mg PO HS 11/08/21 11/08/21 Unknown History Trazodone HCl 100 mg PO PRN PRN 11/08/21 11/08/21 Unknown History Ziprasidone HCl [Geodon] 80 mg PO BID 11/08/21 11/08/21 Unknown History cloNIDine [Catapres] 0.1 mg PO PRN 11/08/21 11/08/21 Unknown History metFORMIN [Glucophage] 1,000 mg PO BID 11/08/21 11/08/21 Unknown History Active Meds: Active Medications Cetirizine HCl (Cetirizine 10 Mg Tab) 10 mg PO DAILY [facility] Last Admin: 11/11/21 09:10 Dose: 10 mg Clonidine HCl (Clonidine 0.1 Mg Tab) 0.1 mg PO DAILY PRN PRN Reason: SBP > /=160 Divalproex Sodium (Divalproex Dr 500 Mg Tab) 500 mg PO BID [facility] Last Admin: 11/11/21 09:09 Dose: 500 mg Famotidine (Famotidine 20 Mg Tab) 20 mg PO BID [facility] Last Admin: 11/11/21 09:09 Dose: 20 mg Insulin Human Lispro (Insulin Lispro 100 Unit/Ml) 0 unit SUB-Q ACHS [facility]; Protocol Last Admin: 11/11/21 07:55 Dose: Not Given Lorazepam (Lorazepam 0.5 Mg Tab) 0.5 mg PO TID [facility] Last Admin: 11/11/21 07:57 Dose: 0.5 mg Losartan Potassium (Losartan 50 Mg Tab) 50 mg PO DAILY [facility] Last Admin: 11/11/21 09:11 Dose: Not Given Magnesium Oxide (Magnesium Oxide 400 Mg Tab) 400 mg PO BID [facility] Last Admin: 11/11/21 09:09 Dose: 400 mg Metformin HCl (Metformin 500 Mg Tab) 1,000 mg PO BIDDIAB [facility] Last Admin: 11/11/21 07:57 Dose: 1,000 mg Metoprolol Succinate (Metoprolol Succinate Xl 25 Mg Tab) 25 mg PO DAILY [facility] Last Admin: 11/11/21 09:10 Dose: 25 mg Nitroglycerin (Nitroglycerin 0.4 Mg Tab Subl) 0.4 mg SL PRN CHRISTA Pravastatin Sodium (Pravastatin 20 Mg Tab) 20 mg PO HS [facility] Last Admin: 11/10/21 21:34 Dose: 20 mg Trazodone HCl (Trazodone 100 Mg Tab) 100 mg PO QHS PRN PRN Reason: Insomnia Ziprasidone (Ziprasidone 40 Mg Cap) 80 mg PO BID [facility] Last Admin: 11/11/21 09:09 Dose: 80 mg Ziprasidone (Ziprasidone Mesylate 20 Mg Vial) 20 mg IM Q6H PRN PRN Reason: Agitation Results - Results Labs/Vitals: Laboratory Last Values WBC 5.3 K/mm3 (4.5-11.0) 11/09/21 05:20 RBC 4.12 M/mm3 (3.65-5.03) 11/09/21 05:20 Hgb 11.3 gm/dl (10.1-14.3) 11/09/21 05:20 Hct 36.3 % (30.3-42.9) 11/09/21 05:20 MCV 88 fl (79-97) 11/09/21 05:20 MCH 27 pg (28-32) L 11/09/21 05:20 MCHC 31 % (30-34) 11/09/21 05:20 RDW 14.5 % (13.2-15.2) 11/09/21 05:20 Plt Count 231 K/mm3 (140-440) 11/09/21 05:20 Lymph % (Auto) 42.9 % (13.4-35.0) H 11/09/21 05:20 [place] % (Auto) 11.1 % (0.0-7.3) H 11/09/21 05:20 Eos % (Auto) 1.9 % (0.0-4.3) 11/09/21 05:20 Baso % (Auto) 0.3 % (0.0-1.8) 11/09/21 05:20 Lymph # (Auto) 2.3 K/mm3 (1.2-5.4) 11/09/21 05:20 [place] # (Auto) 0.6 K/mm3 (0.0-0.8) 11/09/21 05:20 Eos # (Auto) 0.1 K/mm3 (0.0-0.4) 11/09/21 05:20 Baso # (Auto) 0.0 K/mm3 (0.0-0.1) 11/09/21 05:20 Seg Neutrophils % 43.8 % (40.0-70.0) 11/09/21 05:20 Seg Neutrophils # 2.3 K/mm3 (1.8-7.7) 11/09/21 05:20 Sodium 138 mmol/L (137-145) 11/09/21 05:20 Potassium 4.4 mmol/L (3.6-5.0) 11/09/21 05:20 Chloride 103.0 mmol/L (98-107) 11/09/21 05:20 Carbon Dioxide 27 mmol/L (22-30) 11/09/21 05:20 Anion Gap 12 mmol/L 11/09/21 05:20 BUN 19 mg/dL (7-17) H 11/09/21 05:20 Creatinine 0.7 mg/dL (0.6-1.2) 11/09/21 05:20 Estimated GFR > 60 ml/min 11/09/21 05:20 BUN/Creatinine Ratio 27 % 11/09/21 05:20 Glucose 230 mg/dL (65-100) H 11/09/21 05:20 POC Glucose 130 mg/dL (70-105) H 11/11/21 06:43 Hemoglobin A1c 6.3 % (4-6) H 11/09/21 05:20 Calcium 8.6 mg/dL (8.4-10.2) 11/09/21 05:20 Magnesium 2.10 mg/dL (1.7-2.3) 11/09/21 05:20 Total Bilirubin 0.20 mg/dL (0.1-1.2) 11/09/21 05:20 AST 18 units/L (5-40) 11/09/21 05:20 ALT 20 units/L (7-56) 11/09/21 05:20 Alkaline Phosphatase 72 units/L (35-129) 11/09/21 05:20 Total Protein 6.5 g/dL (6.3-8.2) 11/09/21 05:20 Albumin 3.3 g/dL (3.9-5) L 11/09/21 05:20 Albumin/Globulin Ratio 1.0 % 11/09/21 05:20 Triglycerides 89 mg/dL (2-149) 11/09/21 05:20 Cholesterol 162 mg/dL (50-199) 11/09/21 05:20 LDL Cholesterol Direct 101 mg/dL (50-130) 11/09/21 05:20 HDL Cholesterol 45 mg/dL (40-59) 11/09/21 05:20 Cholesterol/HDL Ratio 3.60 % 11/09/21 05:20 TSH 1.290 mlU/mL (0.270-4.200) 11/09/21 05:20 Last Vital Signs Temp 98.1 F 11/11/21 09:04 Pulse 81 11/11/21 09:10 Resp 16 11/11/21 09:04 BP 117/68 11/11/21 09:11 Pulse Ox 96 11/11/21 09:04
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
[2021-11-11] MEDS: PRAVASTATIN 20 MG TAB PO SCH (21:19)
[2021-11-12] MEDS: INSULIN LISPRO 100 UNIT/ML SUB-Q SCH ×4 (07:30→21:06)
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
[2021-11-12] MEDS: LORazepam 0.5 MG TAB PO SCH ×3 (08:46→20:40)
[2021-11-12] MEDS: metFORMIN 500 MG TAB PO SCH ×2 (08:47→16:24)
[2021-11-12] MEDS: FAMOTIDINE 20 MG TAB PO SCH ×2 (09:03→21:05)
[2021-11-12] MEDS: DIVALPROEX DR 500 MG TAB PO SCH ×2 (09:03→21:05)
[2021-11-12] MEDS: CETIRIZINE 10 MG TAB PO SCH (09:03)
[2021-11-12] MEDS: ZIPRASIDONE 40 MG CAP PO SCH ×2 (09:03→21:05)
[2021-11-12] MEDS: MAGNESIUM OXIDE 400 MG TAB PO SCH ×2 (09:03→21:05)
[2021-11-12] MEDS: LOSARTAN 50 MG TAB PO SCH (09:04)
[2021-11-12] MEDS: METOPROLOL SUCCINATE XL 25 MG TAB PO SCH (09:04)
--- NOTE | 2021-11-12 09:35 | Progress Note ---
Assessment and Plan Assessment and plan: Schizophrenia -Continue anti-psychotic -Redirect patient Hypertension -Monitor blood pressure q shift -On home antihypertensive meds Hyperlipidemia -On statin DM2 -controlled -A1c 6.4 -POC BG monitoring -Continue Metformin -On Consistent Carbs diet - Patient Problems (1) DM2 (diabetes mellitus, type 2) Current Visit: Yes Status: Acute Qualifiers: Diabetes mellitus joint terminal attack controller insulin use: without joint terminal attack controller use (2) Hypertension Current Visit: Yes Status: Acute (3) Hyperlipidemia Current Visit: Yes Status: Acute (4) Schizophrenia Current Visit: Yes Status: Acute History Interval history: 66 year old female with history of schizophrenia who was admitted for aggressive behavior. 11/12: Pt is seen sitting at table eating breakfast. She is looking forward to going home. Continues to deny SI/HI. No overnight events reported. 11/11: Pt is seen this morning in rec room . Denies SI/HI, CP, SOB, MACKENZIE. She has no complaints at this time. No overnight events reported. Hospitalist Physical - Physical exam Narrative exam: General appearance: Present: no acute distress - EENT ENT: hearing intact, clear oral mucosa, other (no dentition, not wearing dentures) - Neck Neck: Present: supple, normal ROM - Respiratory Respiratory effort: normal Respiratory: bilateral: CTA - Cardiovascular Rhythm: regular Heart Sounds: Present: S1 & S2. Absent: systolic murmur, diastolic murmur, rub, click - Extremities Extremities: pulses intact, No edema Peripheral Pulses: within normal limits - Abdominal General gastrointestinal: soft, non-tender, non-distended, normal bowel sounds - Integumentary Integumentary: Present: clear, warm, dry - Musculoskeletal Musculoskeletal: left sided residual weakness, no ataxia - Psychiatric Psychiatric: cooperative, other (calm ) - Neurologic Neurologic: CNII-XII intact - Constitutional Vitals: Temp Pulse Resp BP Pulse Ox 97.7 F 86 16 91/67 95 11/11/21 19:09 11/12/21 09:04 11/11/21 19:09 11/12/21 09:04 11/11/21 19:11 General appearance: Present: no acute distress Results - Labs CBC & Chem 7: 11/09/21 05:20 11/09/21 05:20 Labs: Laboratory Last Values WBC 5.3 K/mm3 (4.5-11.0) 11/09/21 05:20 RBC 4.12 M/mm3 (3.65-5.03) 11/09/21 05:20 Hgb 11.3 gm/dl (10.1-14.3) 11/09/21 05:20 Hct 36.3 % (30.3-42.9) 11/09/21 05:20 MCV 88 fl (79-97) 11/09/21 05:20 MCH 27 pg (28-32) L 11/09/21 05:20 MCHC 31 % (30-34) 11/09/21 05:20 RDW 14.5 % (13.2-15.2) 11/09/21 05:20 Plt Count 231 K/mm3 (140-440) 11/09/21 05:20 Lymph % (Auto) 42.9 % (13.4-35.0) H 11/09/21 05:20 Cross % (Auto) 11.1 % (0.0-7.3) H 11/09/21 05:20 Eos % (Auto) 1.9 % (0.0-4.3) 11/09/21 05:20 Baso % (Auto) 0.3 % (0.0-1.8) 11/09/21 05:20 Lymph # (Auto) 2.3 K/mm3 (1.2-5.4) 11/09/21 05:20 Cross # (Auto) 0.6 K/mm3 (0.0-0.8) 11/09/21 05:20 Eos # (Auto) 0.1 K/mm3 (0.0-0.4) 11/09/21 05:20 Baso # (Auto) 0.0 K/mm3 (0.0-0.1) 11/09/21 05:20 Seg Neutrophils % 43.8 % (40.0-70.0) 11/09/21 05:20 Seg Neutrophils # 2.3 K/mm3 (1.8-7.7) 11/09/21 05:20 Sodium 138 mmol/L (137-145) 11/09/21 05:20 Potassium 4.4 mmol/L (3.6-5.0) 11/09/21 05:20 Chloride 103.0 mmol/L (98-107) 11/09/21 05:20 Carbon Dioxide 27 mmol/L (22-30) 11/09/21 05:20 Anion Gap 12 mmol/L 11/09/21 05:20 BUN 19 mg/dL (7-17) H 11/09/21 05:20 Creatinine 0.7 mg/dL (0.6-1.2) 11/09/21 05:20 Estimated GFR > 60 ml/min 11/09/21 05:20 BUN/Creatinine Ratio 27 % 11/09/21 05:20 Glucose 230 mg/dL (65-100) H 11/09/21 05:20 POC Glucose 132 mg/dL (70-105) H 11/12/21 07:51 Hemoglobin A1c 6.3 % (4-6) H 11/09/21 05:20 Calcium 8.6 mg/dL (8.4-10.2) 11/09/21 05:20 Magnesium 2.10 mg/dL (1.7-2.3) 11/09/21 05:20 Total Bilirubin 0.20 mg/dL (0.1-1.2) 11/09/21 05:20 AST 18 units/L (5-40) 11/09/21 05:20 ALT 20 units/L (7-56) 11/09/21 05:20 Alkaline Phosphatase 72 units/L (35-129) 11/09/21 05:20 Total Protein 6.5 g/dL (6.3-8.2) 11/09/21 05:20 Albumin 3.3 g/dL (3.9-5) L 11/09/21 05:20 Albumin/Globulin Ratio 1.0 % 11/09/21 05:20 Triglycerides 89 mg/dL (2-149) 11/09/21 05:20 Cholesterol 162 mg/dL (50-199) 11/09/21 05:20 LDL Cholesterol Direct 101 mg/dL (50-130) 11/09/21 05:20 HDL Cholesterol 45 mg/dL (40-59) 11/09/21 05:20 Cholesterol/HDL Ratio 3.60 % 11/09/21 05:20 TSH 1.290 mlU/mL (0.270-4.200) 11/09/21 05:20 Garza/IV: Voiding Method Toilet Active Medications - Current Medications Current Medications: Generic Name Dose Route Start Last Admin Trade Name Freq PRN Reason Stop Dose Admin Cetirizine HCl 10 mg 11/08/21 10:00 11/12/21 09:03 Cetirizine 10 Mg Tab PO 10 mg DAILY [facility]STA Administration Clonidine HCl 0.1 mg 11/08/21 09:00 Clonidine 0.1 Mg Tab PO DAILY PRN SBP > /=160 Divalproex Sodium 500 mg 11/09/21 11:00 11/12/21 09:[address] 500 Mg Tab PO 500 mg BID [facility]STA Administration Famotidine 20 mg 11/08/21 10:00 11/12/21 09:03 Famotidine 20 Mg Tab PO 20 mg BID [facility]RISTA Administration Insulin Human Lispro 0 unit 11/08/21 23:30 11/12/21 07:30 Insulin Lispro 100 Unit/Ml SUB-Q Not Given ACHS [facility] Protocol Lorazepam 0.5 mg 11/08/21 14:00 11/12/21 08:46 Lorazepam 0.5 Mg Tab PO 0.5 mg TID [facility]STA Administration Losartan Potassium 50 mg 11/08/21 10:00 11/12/21 09:04 Losartan 50 Mg Tab PO Not Given DAILY [facility] Magnesium Oxide 400 mg 11/08/21 10:00 11/12/21 09:03 Magnesium Oxide 400 Mg Tab PO 400 mg BID [facility]STA Administration Metformin HCl 1,000 mg 11/09/21 08:00 11/12/21 08:47 Metformin 500 Mg Tab PO 1,000 mg BIDDIAB [facility] Administration Metoprolol Succinate 25 mg 11/08/21 10:00 11/12/21 09:04 Metoprolol Succinate Xl 25 Mg Tab PO Not Given DAILY [facility] Nitroglycerin 0.4 mg 11/08/21 09:00 Nitroglycerin 0.4 Mg Tab Subl SL PRN [facility]STA Pravastatin Sodium 20 mg 11/08/21 22:00 11/11/21 21:19 Pravastatin 20 Mg Tab PO 20 mg HS [facility] Administration Trazodone HCl 100 mg 11/08/21 22:00 Trazodone 100 Mg Tab PO QHS PRN Insomnia Ziprasidone 80 mg 11/08/21 10:00 11/12/21 09:03 Ziprasidone 40 Mg Cap PO 80 mg BID [facility]STA Administration Ziprasidone 20 mg 11/09/21 11:00 Ziprasidone Mesylate 20 Mg Vial IM Q6H PRN Agitation
[2021-11-12] MEDS: PRAVASTATIN 20 MG TAB PO SCH (21:05)
[2021-11-13] MEDS: INSULIN LISPRO 100 UNIT/ML SUB-Q SCH ×4 (07:30→21:17)
[2021-11-13] MEDS: LORazepam 0.5 MG TAB PO SCH ×3 (08:16→20:50)
[2021-11-13] MEDS: metFORMIN 500 MG TAB PO SCH ×2 (08:18→16:32)
--- NOTE | 2021-11-13 08:19 | Progress Note ---
Subjective Date of service: 11/13/21 Principal diagnosis: schizophrenia Subjective Comment: The patient was seen today. She says she's a little sleepy, but feels okay. She denies SI/HI or hallucinations of any kind. 11/12 The patient was seen today. She is eating and says she's doing okay. She says she slept good and her appetite is good. She denies SI/HI and hallucinations of any kind. 11/11 The patient was seen today. She says she's doing okay. The patient says she slept well last nigh. She says she doesn't want to go back to her prison because people hate her there and does things to her. The patient also hallucinates sometimes and says she sees "other people hands instead of her own." Warren continue to treat and monitor the patient. 11/10: The patient was seen today. The patient was seen resting quietly in bed. Per nurse, the patient had an uneventful night. No changes made today. REVIEW OF SYSTEMS Constitutional: Negative for weight loss ENT: Negative for stridor Respiratory: Negative for cough or hemoptysis All other systems reviewed and are negative MENTAL STATUS EXAMINATION General Appearance and Behavior: Age appropriate, wearing appropriate clothes, cooperative, polite with questioning, good eye contact Cooperation: cooperative Psychomotor Behavior: Psychomotor normal Mood: Okay Affect and affective range: congruent with stated mood Thought Process: Goal directed Thought Content: Reality oriented Speech: Normal volume, Regular rate and rhythm Suicidal Ideation: Denies Homicidal Ideation: Denies Hallucination: Sometimes Delusions: None elicited Impulse Control: Limited Insight and Judgment: Limited Memory: Intact Attention:attentive Orientation: Alert and oriented Assessment Schizophrenia Treatment Plan: Patient admitted for inpatient psychiatric evaluation, medication adjustment and close monitoring The patient's behavior, mood, sleep and appetite will be closely monitored. Patient enrolled in individual and group therapeutic sessions and encouraged to attend. Patient provided with a safe and structured environment. Patient's physical health needs will be addressed by the Hospitalist. Hospitalist Consulted Labs including CBC, CMP, Lipid profile and Hemoglobin A1C levels ordered for baseline reference Social Assessment will be completed and the Vascular Nurse will work with patient and family to ensure a suitable and safe disposition Medication adjustment will be made as clinically indicated Continue home meds Usual Wellness Confucianist/Preservation: - Start Trazodone 50 mg po QHS & 50 mg po QHS PRN between 10 PM & 2 AM for insomnia - Start Melatonin 5 mg po QHS to promote circadian rhythm The patient agreed on the treatment plan, understood the risk, benefit, alternative treatment, potential consequence of no treatment, and gave informed consent. Estimated days: [address] Silva Medications and Allergies Allergies Allergy/AdvReac Type Severity Reaction Status Date / Time codeine Allergy Vomiting Verified 11/08/21 00:41 cholecalciferol (vitamin D3) AdvReac Unknown Verified 11/08/21 00:44 [From Vitamin D3] ciprofloxacin [From Cipro] AdvReac Unknown Verified 11/08/21 00:42 ergocalciferol (vitamin D2) AdvReac Unknown Verified 11/08/21 00:45 [From Vitamin D2] Home Medications Medication Instructions Recorded Confirmed Last Taken Type Divalproex [Su Ingram] 250 mg PO TID 11/08/21 11/08/21 Unknown History Famotidine [Acid-Pep] 20 mg PO BID 11/08/21 11/08/21 Unknown History LORazepam [Ativan] 0.5 mg PO TID 11/08/21 11/08/21 Unknown History Loratadine [Allergy Relief] 10 mg PO DAILY 11/08/21 11/08/21 Unknown History Losartan [Cozaar] 50 mg PO DAILY 11/08/21 11/08/21 Unknown History Magnesium Oxide 400 mg PO BID 11/08/21 11/08/21 Unknown History Metoprolol Succinate [Toprol Xl] 25 mg PO DAILY 11/08/21 11/08/21 Unknown History Nitroglycerin [Nitrostat] 0.4 mg SL PRN 11/08/21 11/08/21 Unknown History Pravastatin [Pravachol] 20 mg PO HS 11/08/21 11/08/21 Unknown History Trazodone HCl 100 mg PO PRN PRN 11/08/21 11/08/21 Unknown History Ziprasidone HCl [Geodon] 80 mg PO BID 11/08/21 11/08/21 Unknown History cloNIDine [Catapres] 0.1 mg PO PRN 11/08/21 11/08/21 Unknown History metFORMIN [Glucophage] 1,000 mg PO BID 11/08/21 11/08/21 Unknown History Active Meds: Active Medications Cetirizine HCl (Cetirizine 10 Mg Tab) 10 mg PO DAILY [facility] Last Admin: 11/12/21 09:03 Dose: 10 mg Clonidine HCl (Clonidine 0.1 Mg Tab) 0.1 mg PO DAILY PRN PRN Reason: SBP > /=160 Divalproex Sodium (Divalproex Dr 500 Mg Tab) 500 mg PO BID [facility] Last Admin: 11/12/21 21:05 Dose: 500 mg Famotidine (Famotidine 20 Mg Tab) 20 mg PO BID [facility] Last Admin: 11/12/21 21:05 Dose: 20 mg Insulin Human Lispro (Insulin Lispro 100 Unit/Ml) 0 unit SUB-Q ACHS [facility]; Protocol Last Admin: 11/12/21 21:06 Dose: Not Given Lorazepam (Lorazepam 0.5 Mg Tab) 0.5 mg PO TID [facility] Last Admin: 11/12/21 20:40 Dose: 0.5 mg Losartan Potassium (Losartan 50 Mg Tab) 50 mg PO DAILY [facility] Last Admin: 11/12/21 09:04 Dose: Not Given Magnesium Oxide (Magnesium Oxide 400 Mg Tab) 400 mg PO BID [facility] Last Admin: 11/12/21 21:05 Dose: 400 mg Metformin HCl (Metformin 500 Mg Tab) 1,000 mg PO BIDDIAB [facility] Last Admin: 11/12/21 16:24 Dose: 1,000 mg Metoprolol Succinate (Metoprolol Succinate Xl 25 Mg Tab) 25 mg PO DAILY [facility] Last Admin: 11/12/21 09:04 Dose: Not Given Nitroglycerin (Nitroglycerin 0.4 Mg Tab Subl) 0.4 mg SL PRN [facility] Pravastatin Sodium (Pravastatin 20 Mg Tab) 20 mg PO HS [facility] Last Admin: 11/12/21 21:05 Dose: 20 mg Trazodone HCl (Trazodone 100 Mg Tab) 100 mg PO QHS PRN PRN Reason: Insomnia Ziprasidone (Ziprasidone 40 Mg Cap) 80 mg PO BID [facility] Last Admin: 11/12/21 21:05 Dose: 80 mg Ziprasidone (Ziprasidone Mesylate 20 Mg Vial) 20 mg IM Q6H PRN PRN Reason: Agitation Results - Results Labs/Vitals: Laboratory Last Values WBC 5.3 K/mm3 (4.5-11.0) 11/09/21 05:20 RBC 4.12 M/mm3 (3.65-5.03) 11/09/21 05:20 Hgb 11.3 gm/dl (10.1-14.3) 11/09/21 05:20 Hct 36.3 % (30.3-42.9) 11/09/21 05:20 MCV 88 fl (79-97) 11/09/21 05:20 MCH 27 pg (28-32) L 11/09/21 05:20 MCHC 31 % (30-34) 11/09/21 05:20 RDW 14.5 % (13.2-15.2) 11/09/21 05:20 Plt Count 231 K/mm3 (140-440) 11/09/21 05:20 Lymph % (Auto) 42.9 % (13.4-35.0) H 11/09/21 05:20 Catron % (Auto) 11.1 % (0.0-7.3) H 11/09/21 05:20 Eos % (Auto) 1.9 % (0.0-4.3) 11/09/21 05:20 Baso % (Auto) 0.3 % (0.0-1.8) 11/09/21 05:20 Lymph # (Auto) 2.3 K/mm3 (1.2-5.4) 11/09/21 05:20 Catron # (Auto) 0.6 K/mm3 (0.0-0.8) 11/09/21 05:20 Eos # (Auto) 0.1 K/mm3 (0.0-0.4) 11/09/21 05:20 Baso # (Auto) 0.0 K/mm3 (0.0-0.1) 11/09/21 05:20 Seg Neutrophils % 43.8 % (40.0-70.0) 11/09/21 05:20 Seg Neutrophils # 2.3 K/mm3 (1.8-7.7) 11/09/21 05:20 Sodium 138 mmol/L (137-145) 11/09/21 05:20 Potassium 4.4 mmol/L (3.6-5.0) 11/09/21 05:20 Chloride 103.0 mmol/L (98-107) 11/09/21 05:20 Carbon Dioxide 27 mmol/L (22-30) 11/09/21 05:20 Anion Gap 12 mmol/L 11/09/21 05:20 BUN 19 mg/dL (7-17) H 11/09/21 05:20 Creatinine 0.7 mg/dL (0.6-1.2) 11/09/21 05:20 Estimated GFR > 60 ml/min 11/09/21 05:20 BUN/Creatinine Ratio 27 % 11/09/21 05:20 Glucose 230 mg/dL (65-100) H 11/09/21 05:20 POC Glucose 124 mg/dL (70-105) H 11/13/21 06:15 Hemoglobin A1c 6.3 % (4-6) H 11/09/21 05:20 Calcium 8.6 mg/dL (8.4-10.2) 11/09/21 05:20 Magnesium 2.10 mg/dL (1.7-2.3) 11/09/21 05:20 Total Bilirubin 0.20 mg/dL (0.1-1.2) 11/09/21 05:20 AST 18 units/L (5-40) 11/09/21 05:20 ALT 20 units/L (7-56) 11/09/21 05:20 Alkaline Phosphatase 72 units/L (35-129) 11/09/21 05:20 Total Protein 6.5 g/dL (6.3-8.2) 11/09/21 05:20 Albumin 3.3 g/dL (3.9-5) L 11/09/21 05:20 Albumin/Globulin Ratio 1.0 % 11/09/21 05:20 Triglycerides 89 mg/dL (2-149) 11/09/21 05:20 Cholesterol 162 mg/dL (50-199) 11/09/21 05:20 LDL Cholesterol Direct 101 mg/dL (50-130) 11/09/21 05:20 HDL Cholesterol 45 mg/dL (40-59) 11/09/21 05:20 Cholesterol/HDL Ratio 3.60 % 11/09/21 05:20 TSH 1.290 mlU/mL (0.270-4.200) 11/09/21 05:20 Last Vital Signs Temp 98.2 F 11/12/21 19:31 Pulse 84 11/12/21 19:31 Resp 17 11/12/21 19:31 BP 136/71 11/12/21 19:31 Pulse Ox 93 11/12/21 19:31
[2021-11-13] MEDS: MAGNESIUM OXIDE 400 MG TAB PO SCH ×2 (09:15→21:16)
[2021-11-13] MEDS: LOSARTAN 50 MG TAB PO SCH (09:15)
[2021-11-13] MEDS: FAMOTIDINE 20 MG TAB PO SCH ×2 (09:16→21:16)
[2021-11-13] MEDS: DIVALPROEX DR 500 MG TAB PO SCH ×2 (09:16→21:16)
[2021-11-13] MEDS: METOPROLOL SUCCINATE XL 25 MG TAB PO SCH (09:17)
[2021-11-13] MEDS: ZIPRASIDONE 40 MG CAP PO SCH ×2 (09:17→21:16)
[2021-11-13] MEDS: CETIRIZINE 10 MG TAB PO SCH (09:18)
--- NOTE | 2021-11-13 09:48 | Progress Note ---
Subjective Date of service: 11/12/21 Principal diagnosis: schizophrenia Objective - Constitutional Vitals: Vital Signs - 12hr 11/13/21 11/13/21 09:15 09:17 Pulse Rate 96 H 96 H Blood Pressure 128/78 128/78 General appearance: Present: no acute distress, well-nourished - EENT Eyes: PERRL, EOM intact ENT: hearing intact, clear oral mucosa Ears: bilateral: normal - Neck Neck: supple, normal ROM - Respiratory Respiratory effort: normal Respiratory: bilateral: CTA - Breasts Breasts: normal - Cardiovascular Rhythm: regular Heart Sounds: Present: S1 & S2. Absent: gallop, rub Extremities: pulses intact, No edema, normal color, Full ROM - Gastrointestinal General gastrointestinal: Present: soft, non-tender, non-distended, normal bowel sounds - Genitourinary Female genitourinary: normal - Integumentary Integumentary: clear, warm, dry - Musculoskeletal Musculoskeletal: 1, strength equal bilaterally - Neurologic Neurologic: moves all extremities - Psychiatric Psychiatric: memory intact, appropriate mood/affect, intact judgment & insight - Labs CBC & Chem 7: 11/09/21 05:20 11/09/21 05:20 Labs: Abnormal lab results 11/12/21 11/12/21 11/12/21 Range/Units 11:28 16:11 20:17 POC Glucose 181 H 127 H 148 H (70-105) mg/dL 11/13/21 Range/Units 06:15 POC Glucose 124 H (70-105) mg/dL
--- NOTE | 2021-11-13 11:20 | Progress Note ---
Assessment and Plan - Patient Problems (1) Vascular dementia with behavior disturbance Current Visit: Yes Status: Acute Plan to address problem: Verbal prompting, verbal redirection, benzodiazepine therapy as clinically indicated. (2) Cerebral atherosclerosis Current Visit: Yes Status: Acute Plan to address problem: Risk factor reduction, antiplatelet therapy as clinically indicated. (3) DM2 (diabetes mellitus, type 2) Current Visit: Yes Status: Acute Qualifiers: Diabetes mellitus snf insulin use: without compensator use Plan to address problem: Consistent carbohydrate diet, Accu-Chek, continue oral antihyperglycemic t herapy. (4) Hyperlipidemia Current Visit: Yes Status: Acute Qualifiers: Hyperlipidemia type: mixed hyperlipidemia Qualified Code(s): E78.2 - Mixed hyperlipidemia Plan to address problem: Low-cholesterol diet, supportive care. (5) Hypertension Current Visit: Yes Status: Acute Qualifiers: Hypertension type: primary hypertension Qualified Code(s): I10 - Essential (primary) hypertension Plan to address problem: Monitor blood pressure every shift, continue medical management (6) Schizophrenia Current Visit: Yes Status: Acute Plan to address problem: Continue medical management. Cognitive behavioral therapy. Medication compliance. (7) Obesity (BMI 30.0-34.9) Current Visit: Yes Status: Acute Plan to address problem: Balanced diet, increase physical activity discharge, outpatient pulmonary fol low-up for sleep study. (8) Advance care planning Current Visit: Yes Status: Acute Plan to address problem: Disease education done, care plan discussed, diagnoses discussed, prognosis discussed, patient is full code. Patient knowledges understanding agreement with care plan, +30 minutes. (9) Preventative health care Current Visit: Yes Status: Acute Plan to address problem: Patient counseled regarding balanced diet, meal planning, risk factor reduction. Patient instructed to follow-up with primary care physician for all age and risk factor appropriate screening test. +30 minutes. History Interval history: 66 YO Female with Vascular Dementia with Behavioral Disturbance, Cerebral Atherosclerosis, DM, HTN, Schizophrenia admitted to [facility] for psyc hiatric stabilization. Consult placed by Dr. Araiza for medical management. Pt seen and evaluated in the recreation room. Pt resting comfortably today. Patient appears to be at baseline level of cognition and function. No reported nursing events. Hospitalist Physical - Constitutional Vitals: Temp Pulse Resp BP Pulse Ox 98.2 F 96 H 17 128/78 93 11/12/21 19:31 11/13/21 09:17 11/12/21 19:31 11/13/21 09:17 11/12/21 19:31 General appearance: Present: no acute distress, well-nourished - EENT Eyes: Present: PERRL ENT: dentition normal - Neck Neck: Present: supple - Respiratory Respiratory effort: normal Respiratory: bilateral: diminished - Cardiovascular Rhythm: regular Heart Sounds: Present: S1 & S2 - Extremities Extremities: no ischemia Peripheral Pulses: within normal limits - Abdominal General gastrointestinal: soft, non-tender, non-distended - Integumentary Integumentary: Present: clear, dry - Psychiatric Psychiatric: cooperative - Neurologic Neurologic: CNII-XII intact Results - Labs CBC & Chem 7: 11/09/21 05:20 11/09/21 05:20 Labs: Laboratory Last Values WBC 5.3 K/mm3 (4.5-11.0) 11/09/21 05:20 RBC 4.12 M/mm3 (3.65-5.03) 11/09/21 05:20 Hgb 11.3 gm/dl (10.1-14.3) 11/09/21 05:20 Hct 36.3 % (30.3-42.9) 11/09/21 05:20 MCV 88 fl (79-97) 11/09/21 05:20 MCH 27 pg (28-32) L 11/09/21 05:20 MCHC 31 % (30-34) 11/09/21 05:20 RDW 14.5 % (13.2-15.2) 11/09/21 05:20 Plt Count 231 K/mm3 (140-440) 11/09/21 05:20 Lymph % (Auto) 42.9 % (13.4-35.0) H 11/09/21 05:20 Cedar % (Auto) 11.1 % (0.0-7.3) H 11/09/21 05:20 Eos % (Auto) 1.9 % (0.0-4.3) 11/09/21 05:20 Baso % (Auto) 0.3 % (0.0-1.8) 11/09/21 05:20 Lymph # (Auto) 2.3 K/mm3 (1.2-5.4) 11/09/21 05:20 Cedar # (Auto) 0.6 K/mm3 (0.0-0.8) 11/09/21 05:20 Eos # (Auto) 0.1 K/mm3 (0.0-0.4) 11/09/21 05:20 Baso # (Auto) 0.0 K/mm3 (0.0-0.1) 11/09/21 05:20 Seg Neutrophils % 43.8 % (40.0-70.0) 11/09/21 05:20 Seg Neutrophils # 2.3 K/mm3 (1.8-7.7) 11/09/21 05:20 Sodium 138 mmol/L (137-145) 11/09/21 05:20 Potassium 4.4 mmol/L (3.6-5.0) 11/09/21 05:20 Chloride 103.0 mmol/L (98-107) 11/09/21 05:20 Carbon Dioxide 27 mmol/L (22-30) 11/09/21 05:20 Anion Gap 12 mmol/L 11/09/21 05:20 BUN 19 mg/dL (7-17) H 11/09/21 05:20 Creatinine 0.7 mg/dL (0.6-1.2) 11/09/21 05:20 Estimated GFR > 60 ml/min 11/09/21 05:20 BUN/Creatinine Ratio 27 % 11/09/21 05:20 Glucose 230 mg/dL (65-100) H 11/09/21 05:20 POC Glucose 124 mg/dL (70-105) H 11/13/21 06:15 Hemoglobin A1c 6.3 % (4-6) H 11/09/21 05:20 Calcium 8.6 mg/dL (8.4-10.2) 11/09/21 05:20 Magnesium 2.10 mg/dL (1.7-2.3) 11/09/21 05:20 Total Bilirubin 0.20 mg/dL (0.1-1.2) 11/09/21 05:20 AST 18 units/L (5-40) 11/09/21 05:20 ALT 20 units/L (7-56) 11/09/21 05:20 Alkaline Phosphatase 72 units/L (35-129) 11/09/21 05:20 Total Protein 6.5 g/dL (6.3-8.2) 11/09/21 05:20 Albumin 3.3 g/dL (3.9-5) L 11/09/21 05:20 Albumin/Globulin Ratio 1.0 % 11/09/21 05:20 Triglycerides 89 mg/dL (2-149) 11/09/21 05:20 Cholesterol 162 mg/dL (50-199) 11/09/21 05:20 LDL Cholesterol Direct 101 mg/dL (50-130) 11/09/21 05:20 HDL Cholesterol 45 mg/dL (40-59) 11/09/21 05:20 Cholesterol/HDL Ratio 3.60 % 11/09/21 05:20 TSH 1.290 mlU/mL (0.270-4.200) 11/09/21 05:20 Garza/IV: Voiding Method Toilet Active Medications - Current Medications Current Medications: Generic Name Dose Route Start Last Admin Trade Name Freq PRN Reason Stop Dose Admin Cetirizine HCl 10 mg 11/08/21 10:00 11/13/21 09:18 Cetirizine 10 Mg Tab PO 10 mg DAILY [facility]STA Administration Clonidine HCl 0.1 mg 11/08/21 09:00 Clonidine 0.1 Mg Tab PO DAILY PRN SBP > /=160 Divalproex Sodium 500 mg 11/09/21 11:00 11/13/21 09:[address] 500 Mg Tab PO 500 mg BID [facility]STA Administration Famotidine 20 mg 11/08/21 10:00 11/13/21 09:16 Famotidine 20 Mg Tab PO 20 mg BID [facility] Administration Insulin Human Lispro 0 unit 11/08/21 23:30 11/12/21 21:06 Insulin Lispro 100 Unit/Ml SUB-Q Not Given ACHS [facility] Protocol Lorazepam 0.5 mg 11/08/21 14:00 11/13/21 08:16 Lorazepam 0.5 Mg Tab PO 0.5 mg TID [facility] Administration Losartan Potassium 50 mg 11/08/21 10:00 11/13/21 09:15 Losartan 50 Mg Tab PO 50 mg DAILY [facility] Administration Magnesium Oxide 400 mg 11/08/21 10:00 11/13/21 09:15 Magnesium Oxide 400 Mg Tab PO 400 mg BID [facility] Administration Metformin HCl 1,000 mg 11/09/21 08:00 11/13/21 08:18 Metformin 500 Mg Tab PO 1,000 mg BIDDIAB [facility] Administration Metoprolol Succinate 25 mg 11/08/21 10:00 11/13/21 09:17 Metoprolol Succinate Xl 25 Mg Tab PO 25 mg DAILY [facility] Administration Nitroglycerin 0.4 mg 11/08/21 09:00 Nitroglycerin 0.4 Mg Tab Subl SL PRN [facility] Pravastatin Sodium 20 mg 11/08/21 22:00 11/12/21 21:05 Pravastatin 20 Mg Tab PO 20 mg HS [facility] Administration Trazodone HCl 100 mg 11/08/21 22:00 Trazodone 100 Mg Tab PO QHS PRN Insomnia Ziprasidone 80 mg 11/08/21 10:00 11/13/21 09:17 Ziprasidone 40 Mg Cap PO 80 mg BID [facility] Administration Ziprasidone 20 mg 11/09/21 11:00 Ziprasidone Mesylate 20 Mg Vial IM Q6H PRN Agitation
[2021-11-13] MEDS: PRAVASTATIN 20 MG TAB PO SCH (21:16)
[2021-11-13] MEDS ORDERED: metFORMIN 500 MG TAB PO SCH (22:00)
--- NOTE | 2021-11-14 09:17 | Progress Note ---
Subjective Date of service: 11/14/21 Principal diagnosis: schizophrenia Subjective Comment: The patient was seen today. She is calm and cooperative. She denies SI/HI or hallucinations and is ready to go home. The patient will discharge tomorrow, due to transportation issues preventing her from leaving today. 11/13 The patient was seen today. She says she's a little sleepy, but feels okay. She denies SI/HI or hallucinations of any kind. 11/12 The patient was seen today. She is eating and says she's doing okay. She says she slept good and her appetite is good. She denies SI/HI and hallucinations of any kind. 11/11 The patient was seen today. She says she's doing okay. The patient says she slept well last nigh. She says she doesn't want to go back to her detention because people hate her there and does things to her. The patient also hallucinates sometimes and says she sees "other people hands instead of her own." Will continue to treat and monitor the patient. 11/10: The patient was seen today. The patient was seen resting quietly in bed. Per nurse, the patient had an uneventful night. No changes made today. REVIEW OF SYSTEMS Constitutional: Negative for weight loss ENT: Negative for stridor Respiratory: Negative for cough or hemoptysis All other systems reviewed and are negative MENTAL STATUS EXAMINATION General Appearance and Behavior: Age appropriate, wearing appropriate clothes, cooperative, polite with questioning, good eye contact Cooperation: cooperative Psychomotor Behavior: Psychomotor normal Mood: Okay Affect and affective range: congruent with stated mood Thought Process: Goal directed Thought Content: Reality oriented Speech: Normal volume, Regular rate and rhythm Suicidal Ideation: Denies Homicidal Ideation: Denies Hallucination: Sometimes Delusions: None elicited Impulse Control: Limited Insight and Judgment: Limited Memory: Intact Attention:attentive Orientation: Alert and oriented Assessment Schizophrenia Treatment Plan: Patient admitted for inpatient psychiatric evaluation, medication adjustment and close monitoring The patient's behavior, mood, sleep and appetite will be closely monitored. Patient enrolled in individual and group therapeutic sessions and encouraged to attend. Patient provided with a safe and structured environment. Patient's physical health needs will be addressed by the Hospitalist. Hospitalist Consulted Labs including CBC, CMP, Lipid profile and Hemoglobin A1C levels ordered for baseline reference Social Assessment will be completed and the Qa Developer will work with patient and family to ensure a suitable and safe disposition Medication adjustment will be made as clinically indicated Continue home meds Usual Wellness Caodaism/Preservation: - Start Trazodone 50 mg po QHS & 50 mg po QHS PRN between 10 PM & 2 AM for insomnia - Start Melatonin 5 mg po QHS to promote circadian rhythm The patient agreed on the treatment plan, understood the risk, benefit, alternative treatment, potential consequence of no treatment, and gave informed consent. Estimated days: [address] Silva Medications and Allergies Allergies Allergy/AdvReac Type Severity Reaction Status Date / Time codeine Allergy Vomiting Verified 11/08/21 00:41 cholecalciferol (vitamin D3) AdvReac Unknown Verified 11/08/21 00:44 [From Vitamin D3] ciprofloxacin [From Cipro] AdvReac Unknown Verified 11/08/21 00:42 ergocalciferol (vitamin D2) AdvReac Unknown Verified 11/08/21 00:45 [From Vitamin D2] Home Medications Medication Instructions Recorded Confirmed Last Taken Type Divalprovikas Ingram [Su Ingram] 250 mg PO TID 11/08/21 11/08/21 Unknown History Famotidine [Acid-Pep] 20 mg PO BID 11/08/21 11/08/21 Unknown History LORazepam [Ativan] 0.5 mg PO TID 11/08/21 11/08/21 Unknown History Loratadine [Allergy Relief] 10 mg PO DAILY 11/08/21 11/08/21 Unknown History Losartan [Cozaar] 50 mg PO DAILY 11/08/21 11/08/21 Unknown History Magnesium Oxide 400 mg PO BID 11/08/21 11/08/21 Unknown History Metoprolol Succinate [Toprol Xl] 25 mg PO DAILY 11/08/21 11/08/21 Unknown History Nitroglycerin [Nitrostat] 0.4 mg SL PRN 11/08/21 11/08/21 Unknown History Pravastatin [Pravachol] 20 mg PO HS 11/08/21 11/08/21 Unknown History Trazodone HCl 100 mg PO PRN PRN 11/08/21 11/08/21 Unknown History Ziprasidone HCl [Geodon] 80 mg PO BID 11/08/21 11/08/21 Unknown History cloNIDine [Catapres] 0.1 mg PO PRN 11/08/21 11/08/21 Unknown History metFORMIN [Glucophage] 1,000 mg PO BID 11/08/21 11/08/21 Unknown History Active Meds: Active Medications Cetirizine HCl (Cetirizine 10 Mg Tab) 10 mg PO DAILY [facility] Last Admin: 11/13/21 09:18 Dose: 10 mg Clonidine HCl (Clonidine 0.1 Mg Tab) 0.1 mg PO DAILY PRN PRN Reason: SBP > /=160 Divalproex Sodium (Divalproex Dr 500 Mg Tab) 500 mg PO BID [facility] Last Admin: 11/13/21 21:16 Dose: 500 mg Famotidine (Famotidine 20 Mg Tab) 20 mg PO BID [facility] Last Admin: 11/13/21 21:16 Dose: 20 mg Insulin Human Lispro (Insulin Lispro 100 Unit/Ml) 0 unit SUB-Q ACHS [facility]; Protocol Last Admin: 11/13/21 21:17 Dose: Not Given Lorazepam (Lorazepam 0.5 Mg Tab) 0.5 mg PO TID [facility] Last Admin: 11/13/21 20:50 Dose: 0.5 mg Losartan Potassium (Losartan 50 Mg Tab) 50 mg PO DAILY [facility] Last Admin: 11/13/21 09:15 Dose: 50 mg Magnesium Oxide (Magnesium Oxide 400 Mg Tab) 400 mg PO BID [facility] Last Admin: 11/13/21 21:16 Dose: 400 mg Metformin HCl (Metformin 500 Mg Tab) 1,000 mg PO BIDDIAB [facility] Metoprolol Succinate (Metoprolol Succinate Xl 25 Mg Tab) 25 mg PO DAILY [facility] Last Admin: 11/13/21 09:17 Dose: 25 mg Nitroglycerin (Nitroglycerin 0.4 Mg Tab Subl) 0.4 mg SL PRN [facility] Pravastatin Sodium (Pravastatin 20 Mg Tab) 20 mg PO HS [facility] Last Admin: 11/13/21 21:16 Dose: 20 mg Trazodone HCl (Trazodone 100 Mg Tab) 100 mg PO QHS PRN PRN Reason: Insomnia Last Admin: 11/13/21 21:16 Dose: 100 mg Ziprasidone (Ziprasidone 40 Mg Cap) 80 mg PO BID [facility] Last Admin: 11/13/21 21:16 Dose: 80 mg Ziprasidone (Ziprasidone Mesylate 20 Mg Vial) 20 mg IM Q6H PRN PRN Reason: Agitation Results - Results Labs/Vitals: Laboratory Last Values WBC 5.3 K/mm3 (4.5-11.0) 11/09/21 05:20 RBC 4.12 M/mm3 (3.65-5.03) 11/09/21 05:20 Hgb 11.3 gm/dl (10.1-14.3) 11/09/21 05:20 Hct 36.3 % (30.3-42.9) 11/09/21 05:20 MCV 88 fl (79-97) 11/09/21 05:20 MCH 27 pg (28-32) L 11/09/21 05:20 MCHC 31 % (30-34) 11/09/21 05:20 RDW 14.5 % (13.2-15.2) 11/09/21 05:20 Plt Count 231 K/mm3 (140-440) 11/09/21 05:20 Lymph % (Auto) 42.9 % (13.4-35.0) H 11/09/21 05:20 [place] % (Auto) 11.1 % (0.0-7.3) H 11/09/21 05:20 Eos % (Auto) 1.9 % (0.0-4.3) 11/09/21 05:20 Baso % (Auto) 0.3 % (0.0-1.8) 11/09/21 05:20 Lymph # (Auto) 2.3 K/mm3 (1.2-5.4) 11/09/21 05:20 [place] # (Auto) 0.6 K/mm3 (0.0-0.8) 11/09/21 05:20 Eos # (Auto) 0.1 K/mm3 (0.0-0.4) 11/09/21 05:20 Baso # (Auto) 0.0 K/mm3 (0.0-0.1) 11/09/21 05:20 Seg Neutrophils % 43.8 % (40.0-70.0) 11/09/21 05:20 Seg Neutrophils # 2.3 K/mm3 (1.8-7.7) 11/09/21 05:20 Sodium 138 mmol/L (137-145) 11/09/21 05:20 Potassium 4.4 mmol/L (3.6-5.0) 11/09/21 05:20 Chloride 103.0 mmol/L (98-107) 11/09/21 05:20 Carbon Dioxide 27 mmol/L (22-30) 11/09/21 05:20 Anion Gap 12 mmol/L 11/09/21 05:20 BUN 19 mg/dL (7-17) H 11/09/21 05:20 Creatinine 0.7 mg/dL (0.6-1.2) 11/09/21 05:20 Estimated GFR > 60 ml/min 11/09/21 05:20 BUN/Creatinine Ratio 27 % 11/09/21 05:20 Glucose 230 mg/dL (65-100) H 11/09/21 05:20 POC Glucose 133 mg/dL (70-105) H 11/14/21 06:35 Hemoglobin A1c 6.3 % (4-6) H 11/09/21 05:20 Calcium 8.6 mg/dL (8.4-10.2) 11/09/21 05:20 Magnesium 2.10 mg/dL (1.7-2.3) 11/09/21 05:20 Total Bilirubin 0.20 mg/dL (0.1-1.2) 11/09/21 05:20 AST 18 units/L (5-40) 11/09/21 05:20 ALT 20 units/L (7-56) 11/09/21 05:20 Alkaline Phosphatase 72 units/L (35-129) 11/09/21 05:20 Total Protein 6.5 g/dL (6.3-8.2) 11/09/21 05:20 Albumin 3.3 g/dL (3.9-5) L 11/09/21 05:20 Albumin/Globulin Ratio 1.0 % 11/09/21 05:20 Triglycerides 89 mg/dL (2-149) 11/09/21 05:20 Cholesterol 162 mg/dL (50-199) 11/09/21 05:20 LDL Cholesterol Direct 101 mg/dL (50-130) 11/09/21 05:20 HDL Cholesterol 45 mg/dL (40-59) 11/09/21 05:20 Cholesterol/HDL Ratio 3.60 % 11/09/21 05:20 TSH 1.290 mlU/mL (0.270-4.200) 11/09/21 05:20 Valproic Acid 43.3 ug/mL (50-100) L 11/14/21 04:50 Last Vital Signs Temp 97.1 F L 11/13/21 21:00 Pulse 78 11/13/21 21:00 Resp 18 11/13/21 21:00 BP 118/74 11/13/21 21:00 Pulse Ox 98 11/13/21 21:00
[2021-11-14] MEDS: metFORMIN 500 MG TAB PO SCH ×2 (09:55→16:37)
[2021-11-14] MEDS: LORazepam 0.5 MG TAB PO SCH ×3 (09:55→22:05)
[2021-11-14] MEDS: ZIPRASIDONE 40 MG CAP PO SCH ×2 (09:55→22:04)
[2021-11-14] MEDS: METOPROLOL SUCCINATE XL 25 MG TAB PO SCH (09:56)
[2021-11-14] MEDS: DIVALPROEX DR 500 MG TAB PO SCH ×2 (09:56→22:04)
[2021-11-14] MEDS: MAGNESIUM OXIDE 400 MG TAB PO SCH ×2 (09:56→22:04)
[2021-11-14] MEDS: CETIRIZINE 10 MG TAB PO SCH (09:56)
[2021-11-14] MEDS: FAMOTIDINE 20 MG TAB PO SCH ×2 (09:57→22:04)
[2021-11-14] MEDS: LOSARTAN 50 MG TAB PO SCH (09:57)
[2021-11-14] MEDS: INSULIN LISPRO 100 UNIT/ML SUB-Q SCH ×3 (09:57→16:37)
[2021-11-14] MEDS: PRAVASTATIN 20 MG TAB PO SCH (22:04)
[2021-11-15] MEDS: INSULIN LISPRO 100 UNIT/ML SUB-Q SCH ×2 (00:15→07:31)
--- NOTE | 2021-11-15 08:06 | Discharge Summary ---
Providers - Providers Date of Admission: 11/08/21 02:48 Date of discharge: 11/15/21 Attending physician: ELHAM STEPHENSON MD 11/08/21 00:46 Consult to Physician [CONS] Routine Comment: Consulting Provider: MARYJO CRUZ Physician Instructions: Reason For Exam: management of medical problems Primary care physician: SYNCHRO ASSEMBLER Hospitalization Condition: Stable Hospital course: The patient was provided inpatient psychiatric treatment with safe and supportive environment, group/individual therapy, psychiatric medication, medication adjustment, adverse effect monitor, medical evaluation, medical treatment, social service assessment, social support meeting, placement assessment and psycho-education. The patients mood, cognition, behavior, motivation, compliance to treatment and appreciation on family/social support are improved and stabilized. At the time of discharge, the patient had no suicidal ideas, no homicidal ideas, no aggressive thoughts, no endangering behavior and no debilitating adverse effects. The patient agreed on the treatment plan, understood the risk, benefit, alternative treatment, potential consequence of no treatment, and gave informed consent. 11/15 The patient was seen today. She is calm, and cooperative. She is pleasant. She says she's a little sleepy but ready to go home. The patient denies SI/HI or hallucinations of any kind. She is clear for discharge and will be d/c home today. 11/14 The patient was seen today. She is calm and cooperative. She denies SI/HI or hallucinations and is ready to go home. The patient will discharge tomorrow, due to transportation issues preventing her from leaving today. 11/13 The patient was seen today. She says she's a little sleepy, but feels okay. She denies SI/HI or hallucinations of any kind. 11/12 The patient was seen today. She is eating and says she's doing okay. She says she slept good and her appetite is good. She denies SI/HI and hallucinations of any kind. 11/11 The patient was seen today. She says she's doing okay. The patient says she slept well last nigh. She says she doesn't want to go back to her detention because people hate her there and does things to her. The patient also hallucinates sometimes and says she sees "other people hands instead of her own." Will continue to treat and monitor the patient. 11/10: The patient was seen today. The patient was seen resting quietly in bed. Per nurse, the patient had an uneventful night. No changes made today. Disposition: 01 HOME / SELF CARE / HOMELESS Time spent for discharge: 35 Allergies/Adverse Reactions: Allergies codeine Allergy (Verified 11/08/21 00:41) Vomiting cholecalciferol (vitamin D3) [From Vitamin D3] Adverse Reaction (Verified 11/08/21 00:44) Unknown ciprofloxacin [From Cipro] Adverse Reaction (Verified 11/08/21 00:42) Unknown ergocalciferol (vitamin D2) [From Vitamin D2] Adverse Reaction (Verified 11/08/21 00:45) Unknown Vital Signs: Last Vital Signs Temp 98.3 F 11/14/21 21:07 Pulse 78 11/14/21 21:07 Resp 18 11/14/21 21:07 BP 120/68 11/14/21 21:07 Pulse Ox 96 11/14/21 21:07 Last Lab: Laboratory Last Values WBC 5.3 K/mm3 (4.5-11.0) 11/09/21 05:20 RBC 4.12 M/mm3 (3.65-5.03) 11/09/21 05:20 Hgb 11.3 gm/dl (10.1-14.3) 11/09/21 05:20 Hct 36.3 % (30.3-42.9) 11/09/21 05:20 MCV 88 fl (79-97) 11/09/21 05:20 MCH 27 pg (28-32) L 11/09/21 05:20 MCHC 31 % (30-34) 11/09/21 05:20 RDW 14.5 % (13.2-15.2) 11/09/21 05:20 Plt Count 231 K/mm3 (140-440) 11/09/21 05:20 Lymph % (Auto) 42.9 % (13.4-35.0) H 11/09/21 05:20 [place] % (Auto) 11.1 % (0.0-7.3) H 11/09/21 05:20 Eos % (Auto) 1.9 % (0.0-4.3) 11/09/21 05:20 Baso % (Auto) 0.3 % (0.0-1.8) 11/09/21 05:20 Lymph # (Auto) 2.3 K/mm3 (1.2-5.4) 11/09/21 05:20 [place] # (Auto) 0.6 K/mm3 (0.0-0.8) 11/09/21 05:20 Eos # (Auto) 0.1 K/mm3 (0.0-0.4) 11/09/21 05:20 Baso # (Auto) 0.0 K/mm3 (0.0-0.1) 11/09/21 05:20 Seg Neutrophils % 43.8 % (40.0-70.0) 11/09/21 05:20 Seg Neutrophils # 2.3 K/mm3 (1.8-7.7) 11/09/21 05:20 Sodium 138 mmol/L (137-145) 11/09/21 05:20 Potassium 4.4 mmol/L (3.6-5.0) 11/09/21 05:20 Chloride 103.0 mmol/L (98-107) 11/09/21 05:20 Carbon Dioxide 27 mmol/L (22-30) 11/09/21 05:20 Anion Gap 12 mmol/L 11/09/21 05:20 BUN 19 mg/dL (7-17) H 11/09/21 05:20 Creatinine 0.7 mg/dL (0.6-1.2) 11/09/21 05:20 Estimated GFR > 60 ml/min 11/09/21 05:20 BUN/Creatinine Ratio 27 % 11/09/21 05:20 Glucose 230 mg/dL (65-100) H 11/09/21 05:20 POC Glucose 109 mg/dL (70-105) H 11/15/21 07:14 Hemoglobin A1c 6.3 % (4-6) H 11/09/21 05:20 Calcium 8.6 mg/dL (8.4-10.2) 11/09/21 05:20 Magnesium 2.10 mg/dL (1.7-2.3) 11/09/21 05:20 Total Bilirubin 0.20 mg/dL (0.1-1.2) 11/09/21 05:20 AST 18 units/L (5-40) 11/09/21 05:20 ALT 20 units/L (7-56) 11/09/21 05:20 Alkaline Phosphatase 72 units/L (35-129) 11/09/21 05:20 Total Protein 6.5 g/dL (6.3-8.2) 11/09/21 05:20 Albumin 3.3 g/dL (3.9-5) L 11/09/21 05:20 Albumin/Globulin Ratio 1.0 % 11/09/21 05:20 Triglycerides 89 mg/dL (2-149) 11/09/21 05:20 Cholesterol 162 mg/dL (50-199) 11/09/21 05:20 LDL Cholesterol Direct 101 mg/dL (50-130) 11/09/21 05:20 HDL Cholesterol 45 mg/dL (40-59) 11/09/21 05:20 Cholesterol/HDL Ratio 3.60 % 11/09/21 05:20 TSH 1.290 mlU/mL (0.270-4.200) 11/09/21 05:20 Valproic Acid 43.3 ug/mL (50-100) L 11/14/21 04:50 Core Measure Documentation - Palliative Care Palliative Care/ Comfort Measures: Not Applicable - Core Measures Any of the following diagnoses?: none Exam - Constitutional Vitals: Temp Pulse Resp BP Pulse Ox 98.3 F 78 18 120/68 96 11/14/21 21:07 11/14/21 21:07 11/14/21 21:07 11/14/21 21:07 11/14/21 21:07 General appearance: Present: no acute distress - EENT Eyes: Present: PERRL, EOM intact ENT: hearing intact, clear oral mucosa - Neck Neck: Present: supple, normal ROM - Respiratory Respiratory effort: normal Plan Activity: advance as tolerated Weight Bearing Status: Weight Bear as Tolerated Care Plan Goals: Maintain good and stable mental health Plan of Treatment: The patient should be compliant with medications, not to use drugs and not to drink alcohol.The patient understands that if suicidal ideas, homicidal ideas, or any endangering thoughts/behavior arise, they should immediately seek for emergent assistance including but not limited to crisis hot line and emergency room. Follow up with outpatient Psychiatrist and PCP within 7 - 14 days of discharge. Assessment: Schizophrenia Follow up with: PRIMARY CARE,MD [Primary Care Provider] - 7 Days Prescriptions: Divalproex [Su Ingram] 500 mg PO BID #60 tablet Ziprasidone HCl [Nelida] 80 mg PO BID #60 cap
[2021-11-15] MEDS: LORazepam 0.5 MG TAB PO SCH (08:25)
[2021-11-15] MEDS: metFORMIN 500 MG TAB PO SCH (08:25)
[2021-11-15 09:52] VITALS: BP 125/63
== END 2021-11-15 08:45 | disposition home or self-care (01) | DRG 885 ==
LOC: UNDOADMIN 16:55 → 3A 16:55 → 5A 11-08 02:48
PROVIDERS: ADMIT Psychiatry & Neurology Psychiatry; ATTEND Psychiatry & Neurology Psychiatry
DX: F20.9 Schizophrenia, unspecified (principal); I10 Essential (primary) hypertension; E11.9 Type 2 diabetes mellitus without complications; I67.2 Cerebral atherosclerosis; E78.2 Mixed hyperlipidemia; F01.51 Vascular dementia, unspecified severity, with behavioral disturbance; E66.9 Obesity, unspecified; Z68.33 Body mass index [BMI] 33.0-33.9, adult; Z88.6 Allergy status to analgesic agent; Z88.8 Allergy status to other drugs, medicaments and biological substances; Z79.899 Other long term (current) drug therapy; Z79.84 Long term (current) use of oral hypoglycemic drugs; Z91.19 Patient's noncompliance with other medical treatment and regimen
CPT/HCPCS: 36415; 80053; 80061; 80164; 82962; 83036; 83735; 84443; 85025; G0378; Q9967; J1815